=== PATIENT | female | born 1950 | race Hispanic/Latino ===

== ENCOUNTER 2017-04-20 11:37 | Emergency (ER) | payer MEDICARE ==
[2017-04-20 11:55] VITALS: BP 113/46
[2017-04-20 12:37] LABS: Basophils % (Auto) 0.9 % (0.0-1.8); Eosinophils % (Auto) 2.9 % (0.0-4.3); Hematocrit 37.9 % (30.3-42.9); Hemoglobin 12.3 gm/dl (10.1-14.3); Mean Corpuscular HGB Conc 32 % (30-34); Mean Corpuscular Hemoglobin 32 pg (28-32); Mean Corpuscular Volume 98 fl (79-97); Platelet Count 307 K/mm3 (140-440); Red Blood Count 3.88 M/mm3 (3.65-5.03); Red Cell Distribution Width 13.3 % (13.2-15.2); White Blood Count 7.7 K/mm3 (4.5-11.0)
--- NOTE | 2017-04-20 12:55 | Emergency Department Report ---
ED Chest Pain HPI - General Chief Complaint: Chest Pain Stated Complaint: GI BLEED/CHEST PAIN Time Seen by Provider: 04/20/17 12:52 Source: EMS Mode of arrival: Ambulatory Limitations: No Limitations - History of Present Illness Initial Comments: Patient complains of midsternal nonradiating chest ache which lasted less than 10 minutes. She states "I'm under a lot of stress". She has had a recent hospitalization for evaluation of chest pain. Nuclear perfusion study was negative. 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 Today she was planning to go to a 3:30 appointment with an oncologist. 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 She does not complain of shortness of breath now. She did not have shortness of breath with the episode nor any vomiting or acute diaphoresis or sweating. MD Complaint: chest pain -: Gradual, minutes(s) Onset: during rest Pain Location: substernal Pain Radiation: none Severity: mild Quality: dull Consistency: now resolved Improves With: nothing Worsens With: nothing re: denies: nausea, vomting, diaphoresis Other Symptoms: denies: cough, fever, syncope Treatments Prior to Arrival: none Aspirin use within the Past 7 Days: (1) Yes - Related Data Home Medications Medication Instructions Recorded Confirmed Last Taken Midodrine [Proamatine] 5 mg PO QAM 04/08/17 04/08/17 04/08/17 Midodrine [Proamatine] 5 mg PO QPM 04/08/17 04/08/17 04/07/17 Potassium Chloride [Klor-Con 10] 20 mg PO QAM 04/08/17 04/08/17 04/08/17 Simvastatin [Zocor TAB] 40 mg PO QHS 04/08/17 04/08/17 04/07/17 Topiramate [Topamax] 200 mg PO QHS 04/08/17 04/08/17 04/07/17 Previous Rx's Medication Instructions Recorded Last Taken Type Aspirin [Aspirin BABY CHEW TAB] 81 mg PO QDAY #30 tab.chew 04/15/17 Unknown Rx AtorvaSTATin [Lipitor] 40 mg PO QHS #30 tablet 04/15/17 Unknown Rx Famotidine [Pepcid] 20 mg PO BID #60 tablet 04/15/17 Unknown Rx HYDROcodone/ACETAMINOPHEN 1 tab PO Q6H PRN #20 tablet 04/15/17 Unknown Rx [Hydrocodon-Acetaminophn 10-325] Midodrine [Proamatine] 5 mg PO QHS #30 tablet 04/15/17 Unknown Rx Pantoprazole [Protonix TAB] 40 mg PO QDAY #30 tablet 04/15/17 Unknown Rx Topiramate [Topamax] 100 mg PO QAM #30 tablet 04/15/17 Unknown Rx Topiramate [Topamax] 200 mg PO QHS #30 tablet 04/15/17 Unknown Rx levETIRAcetam [Keppra TAB] 750 mg PO QHS #60 tablet 04/15/17 Unknown Rx Allergies Allergy/AdvReac Type Severity Reaction Status Date / Time Penicillins Allergy Intermediate Itching Verified 04/08/17 13:33 codeine AdvReac Rash Verified 04/08/17 13:33 Sulfa (Sulfonamide AdvReac Nausea Verified 04/08/17 13:33 Antibiotics) Heart Score - HEART Score History: Slightly suspicious EKG: Normal Age: > 65 Risk factors: > 3 risk factors or hx of atherosclerotic disease Troponin: < normal limit HEART Score: 4 - Critical Actions Critical Actions: 4-6 pts:12-16.6% risk of adverse cardiac event. Should be admitted ED Review of Systems ROS: Stated complaint: GI BLEED/CHEST PAIN Other details as noted in HPI Constitutional: denies: chills, fever Eyes: denies: eye pain, eye discharge, vision change ENT: denies: ear pain, throat pain Respiratory: denies: cough, shortness of breath, wheezing Cardiovascular: chest pain. denies: palpitations Endocrine: no symptoms reported Gastrointestinal: denies: abdominal pain, nausea, diarrhea Genitourinary: denies: urgency, dysuria, discharge Musculoskeletal: denies: back pain, joint swelling, arthralgia Skin: denies: rash, lesions Neurological: denies: headache, weakness, paresthesias Psychiatric: denies: anxiety, depression Hematological/Lymphatic: denies: easy bleeding, easy bruising ED Past Medical Hx - Past Medical History Previous Medical History?: Yes Hx Hypertension: Yes (Hypotension ) Hx CVA: Yes Hx Heart Attack/AMI: Yes (states that no stent has been placed) Hx Congestive Heart Failure: Yes Hx Diabetes: No Hx Deep Vein Thrombosis: Yes Hx GERD: Yes Hx Arthritis: Yes Hx Seizures: Yes Hx Psychiatric Treatment: Yes Hx Asthma: No Hx COPD: Yes Hx HIV: No Additional medical history: Atrial fibrillation patient had a cardiac cath done in 2007 which showed clean coronary arteries except for extremely mild disease. Echocardiogram showed an ejection fraction of 50%. - Surgical History Past Surgical History?: Yes Hx Pacemaker: Yes Hx Cholecystectomy: Yes Hx Appendectomy: Yes Additional Surgical History: hyst. Patient does have a pacemaker - Social History Smoking Status: Current Every Day Smoker Substance Use Type: None - Medications Home Medications: Home Medications Medication Instructions Recorded Confirmed Last Taken Type Midodrine [Proamatine] 5 mg PO QAM 04/08/17 04/08/17 04/08/17 History Midodrine [Proamatine] 5 mg PO QPM 04/08/17 04/08/17 04/07/17 History Potassium Chloride [Klor-Con 10] 20 mg PO QAM 04/08/17 04/08/17 04/08/17 History Simvastatin [Zocor TAB] 40 mg PO QHS 04/08/17 04/08/17 04/07/17 History Topiramate [Topamax] 200 mg PO QHS 04/08/17 04/08/17 04/07/17 History Aspirin [Aspirin BABY CHEW TAB] 81 mg PO QDAY #30 tab.chew 04/15/17 Unknown Rx AtorvaSTATin [Lipitor] 40 mg PO QHS #30 tablet 04/15/17 Unknown Rx Famotidine [Pepcid] 20 mg PO BID #60 tablet 04/15/17 Unknown Rx HYDROcodone/ACETAMINOPHEN 1 tab PO Q6H PRN #20 tablet 04/15/17 Unknown Rx [Hydrocodon-Acetaminophn 10-325] Midodrine [Proamatine] 5 mg PO QHS #30 tablet 04/15/17 Unknown Rx Pantoprazole [Protonix TAB] 40 mg PO QDAY #30 tablet 04/15/17 Unknown Rx Topiramate [Topamax] 100 mg PO QAM #30 tablet 04/15/17 Unknown Rx Topiramate [Topamax] 200 mg PO QHS #30 tablet 04/15/17 Unknown Rx levETIRAcetam [Keppra TAB] 750 mg PO QHS #60 tablet 04/15/17 Unknown Rx ED Physical Exam - General Limitations: No Limitations General appearance: alert, in no apparent distress - Head Head exam: Present: atraumatic, normocephalic - Eye Eye exam: Present: normal appearance. Absent: scleral icterus - ENT ENT exam: Present: mucous membranes moist - Neck Neck exam: Present: normal inspection - Respiratory Respiratory exam: Present: normal lung sounds bilaterally, other (somewhat kyphotic chest). Absent: respiratory distress - Cardiovascular Cardiovascular Exam: Present: regular rate, normal rhythm. Absent: systolic murmur, diastolic murmur, rubs, gallop - GI/Abdominal GI/Abdominal exam: Present: soft, normal bowel sounds. Absent: distended, tenderness, guarding, rebound - Extremities Exam Extremities exam: Present: normal inspection - Back Exam Back exam: Present: normal inspection - Neurological Exam Neurological exam: Present: alert, oriented X3, CN II-XII intact. Absent: motor sensory deficit - Psychiatric Psychiatric exam: Present: normal affect, normal mood - Skin Skin exam: Present: warm, dry, intact, normal color. Absent: rash ED Course Vital Signs 04/20/17 04/20/17 04/20/17 11:51 11:57 12:03 Temperature 98.5 F Pulse Rate 69 70 Respiratory 16 16 Rate Blood Pressure 113/46 O2 Sat by Pulse 99 99 Oximetry - Reevaluation(s) Reevaluation #1: I didn't see any benefit for hospitalization at this point. Patient has no acute rectal bleeding. She simply mentioned that sometimes she has hemorrhoidal bleeding. That is not why she came today. She has an appointment with her oncologist at the series first appointment) at 3:30. I would not do later this by detaining her any further in the hospital. She will be released. 04/20/17 13:19 ED Medical Decision Making - Lab Data Result diagrams: 04/20/17 12:17 04/20/17 12:11 Laboratory Results - last 24 hr 04/20/17 12:17 WBC 7.7 RBC 3.88 Hgb 12.3 Hct 37.9 MCV 98 H MCH 32 MCHC 32 RDW 13.3 Plt Count 307 Lymph % (Auto) 32.1 [place] % (Auto) 8.1 H Eos % (Auto) 2.9 Baso % (Auto) 0.9 Lymph # 2.5 [place] # 0.6 Eos # 0.2 Baso # 0.1 Seg Neutrophils % 56.0 Seg Neutrophils # 4.3 - EKG Data -: EKG Interpreted by Me - EKG Data Interpretation: other (possible underlying atrial fibrillation with ventricular pacing) Critical care attestation.: If time is entered above; I have spent that time in minutes in the direct care of this critically ill patient, excluding procedure time. ED Disposition Clinical Impression: Atypical chest pain Squamous cell carcinoma lung Qualifiers: Laterality: right Qualified Code(s): C34.91 - Malignant neoplasm of unspecified part of right bronchus or lung Disposition: DC-01 TO HOME OR SELFCARE Is pt being admited?: No Does the pt Need Aspirin: No Condition: Stable Instructions: Chest Pain (ED), Lung Cancer (ED) Additional Instructions: Return any acute change or problem. See her oncologist for further instruction as for appointment today. Referrals: PRIMARY CARE, [Primary Care Provider] - 3-5 Days you, oncologist at 3:30 [Other] - 3-5 Days Time of Disposition: 13:21
[2017-04-20 12:57] LABS: Anion Gap 16 mmol/L; BUN/Creatinine Ratio 20; Blood Urea Nitrogen 14 mg/dL (7-17); Calcium 8.9 mg/dL (8.4-10.2); Carbon Dioxide 19 mmol/L (22-30); Chloride 106.5 mmol/L (98-107); Glucose 83 mg/dL (65-100); Potassium 3.8 mmol/L (3.6-5.0); Sodium 138 mmol/L (137-145)
== END 2017-04-20 13:39 | disposition home or self-care (01) ==
LOC: ED 11:37
DX: R07.89 Other chest pain (principal); C34.91 Malignant neoplasm of unspecified part of right bronchus or lung; I10 Essential (primary) hypertension; I25.2 Old myocardial infarction; K21.9 Gastro-esophageal reflux disease without esophagitis; J44.9 Chronic obstructive pulmonary disease, unspecified; R56.9 Unspecified convulsions; M19.90 Unspecified osteoarthritis, unspecified site; I82.409 Acute embolism and thrombosis of unspecified deep veins of unspecified lower extremity; Z88.0 Allergy status to penicillin; Z88.6 Allergy status to analgesic agent; Z88.2 Allergy status to sulfonamides; Z98.890 Other specified postprocedural states; Z90.49 Acquired absence of other specified parts of digestive tract; Z79.82 Long term (current) use of aspirin; F17.200 Nicotine dependence, unspecified, uncomplicated
CPT/HCPCS: 36415; 80048; 84484; 85025; 93005; 93010

== ENCOUNTER 2018-07-15 10:20 | Emergency (ER) | payer MEDICARE ==
--- NOTE | 2018-07-15 12:59 | Emergency Department Report ---
ED N/V/D HPI - General Chief complaint: Nausea/Vomiting/Diarrhea Stated complaint: GENERAL SICKNESS Time Seen by Provider: 07/15/18 12:58 Source: patient Mode of arrival: Wheelchair Limitations: No Limitations - History of Present Illness Initial comments: This is a 58-year-old female here report that she has nausea and vomiting in and diarrhea for 3 days. She reports that she has a cough. She said cough is nonproductive with drainage the back of her throat . Cough is worse at night. Denies any urinary burning per record frequency and urgency. Last diarrhea was yesterday. Last vomited last night but she is still nauseous. Denies any fever or chills . Minimal abdominal cramping into pelvic area. Denies any back pain. Pain is 2/10 and crampy. No alleviating or exacerbating factors. No blood in stool or vomit. MD complaint: nausea, vomiting, diarrhea, abdominal pain Onset/Timin -: hour(s) Description of Vomiting: watery Description of Diarrhea: mucous Associated Abdominal Pain: Yes Location: LLQ (pelvic area) Radiation: none Severity: mild Pain Scale: 2 Quality: cramping Consistency: intermittent Improves with: none Worsens with: none Associated Symptoms: nausea/vomiting. denies: myalgias, chest pain, cough, diaphoresis, fever/chills, headaches, loss of appetite, malaise, rash, dysuria, shortness of breath, syncope, weakness - Related Data Home Medications Medication Instructions Recorded Confirmed Last Taken Midodrine [Proamatine] 5 mg PO QAM 04/08/17 04/08/17 04/08/17 Midodrine [Proamatine] 5 mg PO QPM 04/08/17 04/08/17 04/07/17 Potassium Chloride [Klor-Con 10] 20 mg PO QAM 04/08/17 04/08/17 04/08/17 Simvastatin [Zocor TAB] 40 mg PO QHS 04/08/17 04/08/17 04/07/17 Topiramate [Topamax] 200 mg PO QHS 04/08/17 04/08/17 04/07/17 Previous Rx's Medication Instructions Recorded Last Taken Type Aspirin [Aspirin BABY CHEW TAB] 81 mg PO QDAY #30 tab.chew 04/15/17 Unknown Rx AtorvaSTATin [Lipitor] 40 mg PO QHS #30 tablet 04/15/17 Unknown Rx Famotidine [Pepcid] 20 mg PO BID #60 tablet 04/15/17 Unknown Rx HYDROcodone/ACETAMINOPHEN 1 tab PO Q6H PRN #20 tablet 04/15/17 Unknown Rx [Hydrocodone-Acetamin 10-325 mg] Midodrine [Proamatine] 5 mg PO QHS #30 tablet 04/15/17 Unknown Rx Pantoprazole [Protonix TAB] 40 mg PO QDAY #30 tablet 04/15/17 Unknown Rx Topiramate [Topamax] 100 mg PO QAM #30 tablet 04/15/17 Unknown Rx Topiramate [Topamax] 200 mg PO QHS #30 tablet 04/15/17 Unknown Rx levETIRAcetam [Keppra TAB] 750 mg PO QHS #60 tablet 04/15/17 Unknown Rx ALBUTEROL Inhaler (OR & NICU) 2 puff IH Q6H PRN #1 inhalation 07/15/18 Unknown Rx [ProAir HFA Inhaler] Ondansetron [Zofran ODT TAB] 8 mg PO Q8HR PRN #12 tab.rapdis 07/15/18 Unknown Rx levoFLOXacin [Levaquin] 750 mg PO QDAY 9 Days #9 tablet 07/15/18 Unknown Rx Allergies Allergy/AdvReac Type Severity Reaction Status Date / Time Penicillins Allergy Intermediate Itching Verified 07/15/18 10:32 codeine AdvReac Rash Verified 07/15/18 10:32 Sulfa (Sulfonamide AdvReac Nausea Verified 07/15/18 10:32 Antibiotics) ED Review of Systems ROS: Stated complaint: GENERAL SICKNESS Other details as noted in HPI Constitutional: denies: chills, fever Respiratory: cough. denies: shortness of breath, SOB with exertion, SOB at rest, stridor, wheezing Cardiovascular: denies: chest pain, palpitations, dyspnea on exertion, edema, syncope Gastrointestinal: abdominal pain, nausea, vomiting, diarrhea. denies: constipation, hematemesis, melena, hematochezia Genitourinary: urgency, frequency. denies: dysuria, hematuria, discharge Musculoskeletal: denies: back pain, joint swelling, arthralgia, myalgia Skin: denies: rash Neurological: denies: headache, numbness, paresthesias, confusion, abnormal gait, vertigo ED Past Medical Hx - Past Medical History Previous Medical History?: Yes Hx Hypertension: Yes (Hypotension ) Hx CVA: Yes Hx Heart Attack/AMI: Yes (states that no stent has been placed) Hx Congestive Heart Failure: Yes Hx Diabetes: No Hx Deep Vein Thrombosis: Yes Hx GERD: Yes Hx Arthritis: Yes Hx Seizures: Yes Hx Psychiatric Treatment: Yes Hx Asthma: No Hx COPD: Yes Hx HIV: No Additional medical history: Atrial fibrillation patient had a cardiac cath done in 2007 which showed clean coronary arteries except for extremely mild disease. Echocardiogram showed an ejection fraction of 50%. - Surgical History Past Surgical History?: Yes Hx Pacemaker: Yes Hx Cholecystectomy: Yes Hx Appendectomy: Yes Additional Surgical History: hyst - Family History Family history: hypertension - Social History Smoking Status: Former Smoker Substance Use Type: None - Medications Home Medications: Home Medications Medication Instructions Recorded Confirmed Last Taken Type Midodrine [Proamatine] 5 mg PO QAM 04/08/17 04/08/17 04/08/17 History Midodrine [Proamatine] 5 mg PO QPM 04/08/17 04/08/17 04/07/17 History Potassium Chloride [Klor-Con 10] 20 mg PO QAM 04/08/17 04/08/17 04/08/17 History Simvastatin [Zocor TAB] 40 mg PO QHS 04/08/17 04/08/17 04/07/17 History Topiramate [Topamax] 200 mg PO QHS 04/08/17 04/08/17 04/07/17 History Aspirin [Aspirin BABY CHEW TAB] 81 mg PO QDAY #30 tab.chew 04/15/17 Unknown Rx AtorvaSTATin [Lipitor] 40 mg PO QHS #30 tablet 04/15/17 Unknown Rx Famotidine [Pepcid] 20 mg PO BID #60 tablet 04/15/17 Unknown Rx HYDROcodone/ACETAMINOPHEN 1 tab PO Q6H PRN #20 tablet 04/15/17 Unknown Rx [Hydrocodone-Acetamin 10-325 mg] Midodrine [Proamatine] 5 mg PO QHS #30 tablet 04/15/17 Unknown Rx Pantoprazole [Protonix TAB] 40 mg PO QDAY #30 tablet 04/15/17 Unknown Rx Topiramate [Topamax] 100 mg PO QAM #30 tablet 04/15/17 Unknown Rx Topiramate [Topamax] 200 mg PO QHS #30 tablet 04/15/17 Unknown Rx levETIRAcetam [Keppra TAB] 750 mg PO QHS #60 tablet 04/15/17 Unknown Rx ALBUTEROL Inhaler (OR & NICU) 2 puff IH Q6H PRN #1 inhalation 07/15/18 Unknown Rx [ProAir HFA Inhaler] Ondansetron [Zofran ODT TAB] 8 mg PO Q8HR PRN #12 tab.rapdis 07/15/18 Unknown Rx levoFLOXacin [Levaquin] 750 mg PO QDAY 9 Days #9 tablet 07/15/18 Unknown Rx ED Physical Exam - General Limitations: No Limitations General appearance: alert, in no apparent distress - Head Head exam: Present: atraumatic, normocephalic, normal inspection - Eye Eye exam: Present: normal appearance, PERRL, EOMI Pupils: Present: normal accommodation - ENT ENT exam: Present: normal exam, normal orophraynx, mucous membranes moist - Neck Neck exam: Present: normal inspection, full ROM. Absent: tenderness, lymphadenopathy - Respiratory Respiratory exam: Present: normal lung sounds bilaterally. Absent: respiratory distress, chest wall tenderness - Cardiovascular Cardiovascular Exam: Present: regular rate, normal rhythm, normal heart sounds - GI/Abdominal GI/Abdominal exam: Present: soft, normal bowel sounds. Absent: distended, tenderness, guarding, rebound, rigid, organomegaly, mass, bruit, pulsatile mass, hernia - Extremities Exam Extremities exam: Present: normal inspection, full ROM, normal capillary refill, other (No cce. + 2 pulses in all extremities, no neurovascular compromise). Absent: tenderness, pedal edema, joint swelling, calf tenderness - Back Exam Back exam: Present: normal inspection, full ROM, other ( ambulates without any difficulties). Absent: tenderness, CVA tenderness (R), CVA tenderness (L), muscle spasm, paraspinal tenderness, vertebral tenderness, rash noted - Neurological Exam Neurological exam: Present: alert, oriented X3, normal gait, reflexes normal - Psychiatric Psychiatric exam: Present: normal affect, normal mood - Skin Skin exam: Present: warm, dry, intact, normal color. Absent: rash ED Course Vital Signs 07/15/18 07/15/18 10:32 16:00 Temperature 97.9 F Pulse Rate 77 68 Respiratory 18 20 Rate Blood Pressure 137/75 Blood Pressure 131/71 [Right] O2 Sat by Pulse 95 94 Oximetry - Reevaluation(s) Reevaluation #1: 07/15/18 15:53 This is a 68-year-old female here report that she is of a nausea vomiting and diarrhea and abdominal pain for days but it comes and goes. Slit nausea today and also having some urinary frequency or urgency. She did not take any medication and came to the emergency room reporting that she felt dehydrated. There is no sign of dehydration. Her analysis showed small amount of, moderate leukocyte Estrace and positive white count. Urine culture sent. BMP is stable. Patient received normal saline 500 mL an emergency room and she is able to tolerate oral liquids. She also received Zofran 4 mg IV and lidocaine 15 mL with Maalox 30 mL in emergency room or relief of pain. She has no nausea and no episode of Diarrhea or vomiting. Patient stable and discharged from ED in stable condition. Vital signs stable she is afebrile and nurse access port for IV fl uid and port was the excess prior to discharge. Ciprofloxacin and Zofran. Reevaluation #2: 07/15/18 16:24 Patient remained stable throughout ED course. She is in no acute distress and discharged home in stable condition. ED Medical Decision Making - Lab Data Result diagrams: 07/15/18 13:48 Lab Results 07/15/18 07/15/18 Range/Units 13:48 13:48 Sodium 139 (137-145) mmol/L Potassium 4.1 (3.6-5.0) mmol/L Chloride 104.5 (98-107) mmol/L Carbon Dioxide 22 (22-30) mmol/L Anion Gap 17 mmol/L BUN 7 (7-17) mg/dL Creatinine 0.9 (0.7-1.2) mg/dL Estimated GFR > 60 ml/min BUN/Creatinine Ratio 8 % Glucose 94 (65-100) mg/dL Calcium 9.0 (8.4-10.2) mg/dL Urine Color Yellow (Yellow) Urine Turbidity Clear (Clear) Urine pH 7.0 (5.0-7.0) Ur Specific [place] 1.008 (1.003-1.030) Urine Protein <15 mg/dl (Negative) mg/dL Urine Glucose (UA) Neg (Negative) mg/dL Urine Ketones Neg (Negative) mg/dL Urine Blood Sm (Negative) Urine Nitrite Neg (Negative) Urine Bilirubin Neg (Negative) Urine Urobilinogen < 2.0 (<2.0) mg/dL Ur Leukocyte Esterase Mod (Negative) Urine WBC (Auto) 13.0 H (0.0-6.0) /HPF Urine RBC (Auto) 4.0 (0.0-6.0) /HPF U Epithel Cells (Auto) < 1.0 (0-13.0) /HPF Urine culture sent - Radiology Data Radiology results: report reviewed Patient had supine and upright view of the abdomen which shows unremarkable abdominal finding. She had abnormal chest findings on prior CT in April 2017 suggest review of prior CT reports. Patient said that she had pneumonia and he treated her at [place]. Patient has CT scan of the chest on 04/09/2018 and was treated for pneumonia. She had sepsis at that time with hemoptysis, hypertension. Patient is stable at present and vital signs are stable Findings [address] [address] XRay Report Signed Patient: MARIANELA WAGNER MR#: [id number] : 1950 Acct:[id number] Age/Sex: 68 / F ADM Date: 07/15/18 Loc: ED Attending Dr: Ordering Physician: ROSY WATERS Date of Service: 07/15/18 Procedure(s): XR abdomen 2V Accession Number(s): [id number] cc: ROSY WATERS Fluoro Time In Minutes: Supine and upright views of the abdomen: There is an unremarkable distribution of bowel gas. There is no free air and no abdominal mass. The markings in both lung bases however are quite coarse and there appears to be peribronchial thickening and possible infiltrate at the right lung base. Impressions: Unremarkable abdominal findings. Abnormal chest findings. Prior abnormal CT in April 2017. Suggest review of prior CT report and question patient regarding followup at that time. Transcribed By: MARIA DE JESUS Dictated By: PARVIZ BAH MD Electronically Authenticated By: PARVIZ BAH MD Signed Date/Time: 07/15/18 132 DD/ 1322 TD/TT: 07/15/18 [address] [place] [address] Cat Scan Report Signed Patient: MARIANELA WAGNER MR#: [id number] : 1950 Acct:[id number] Age/Sex: 67 / F ADM Date: 04/08/17 Loc: 4A A458-[address]: VAL ROLLINS MD Ordering Physician: MADHURI PAVON MD Date of Service: 04/09/17 Procedure(s): CT chest w con Accession Number(s): [id number] cc: MADHURI PAVON MD CT CHEST WITH CONTRAST: HISTORY: Hemoptysis. TECHNIQUE: Helical CT following IV contrast. Sagittal and coronal reformatted images. FINDINGS: No recent comparison. There is a rounded area of consolidation measuring 4.1 x 3.4 cm just posterior to the right hilum. Patchy infiltration is also identified in the posterior right lower lobe. This has the appearance of a focal pneumonia. I cannot entirely exclude an underlying lung mass. Followup after therapy is recommended. The remainder of the lungs are clear. There are mild chronic interstitial changes. No advanced parenchymal lung disease is appreciated. No pleural effusion or pneumothorax. There is borderline to mild cardiomegaly. No pericardial effusion. A pacemaker device is in position. The mediastinal vessels are patent. The tracheobronchial tree and esophagus are unremarkable. No bulky thoracic adenopathy. The thoracic cage is intact. Mild thoracic spondylosis is noted. Limited images of the upper abdomen demonstrate cholecystectomy changes. A 1.5 cm low-density lesion in the right adrenal gland is identified which probably represents an adrenal adenoma. IMPRESSION: Right lower lobe opacity as described. I favor pneumonia over mass. Followup is recommended. Borderline to mild cardiomegaly. Right adrenal hypodense lesion which probably represents an adrenal adenoma. Transcribed By: TTR Dictated By: LELA TORIBIO JR, MD Electronically Authenticated By: LELA TORIBIO JR, MD Signed Date/Time: 04/09/17850 DD/ 7 TD/TT: 04/09/17850 - Medical Decision Making This is a 68-year-old female here report that she is having nausea vomiting and diarrhea which she has not had any vomiting or diarrhea today but she still not nauseated. She was here on 04/09/2018 and was treated for pneumonia amongst other things that she was a admitted for sepsis pneumonia. Patient vital signs are stable she is afebrile. She says she feels good and she feels better. Abdominal x-ray 2 view shows normal abdomen but she has some peribronchial thickening and possible infiltrate at the right lung base. Patient is not short of breath. She has COPD and her O2 sat is 95%. Other vital signs are stable with no signs of sepsis. I discussed diagnosis, x-ray results and lab results along with urinalysis with patient. She will first got home she said last time she was admitted for pneumonia was when she was at [place] but patient was also admitted on 04/09/2018. Patient doctor is Dr. Jose Bardales and she is in [facility] and patient said that she will be able to get an appointment with her on Wednesday. I discussed with her that she needs to return to the emergency room if she develops any dizziness, nausea, vomiting and diarrhea return, abdominal pain, shortness of breath or chest pain. I also discussed that she has weakness to return to the emergency room JOHNNY and she agrees. Patient given first dose of Levaquin to cover possible right lower lobe infiltrate and urinary tract infection in emergency room and will be given 9 more doses for a total of 10 days. She was also given nebulizer treatment to include DuoNeb 1 dose in emergency room. Patient lung sounds was clear prior to treatments with diminished air entry due to chronic COPD but she does not have any adventitious sounds and no use of accessory muscles. She has no episode of nausea, vomiting or diarrhea in the emergency room and she requested pain medication 1 and emergency room and is given Maalox and lidocaine which resolved her pain. Discharged lower prescription for albuterol HFA and Levaquin. - Differential Diagnosis bowel obstruction, gastroenteritis, UTI Critical care attestation.: If time is entered above; I have spent that time in minutes in the direct care of this critically ill patient, excluding procedure time. ED Disposition Clinical Impression: Nausea vomiting and diarrhea, Acute cystitis with hematuria Right lower lobe pneumonia Qualifiers: Pneumonia type: due to unspecified organism Qualified Code(s): J18.1 - Lobar pneumonia, unspecified organism Abdominal pain Qualifiers: Abdominal location: left lower quadrant Qualified Code(s): R10.32 - Left lower quadrant pain Disposition: DC-01 TO HOME OR SELFCARE Is pt being admited?: No Does the pt Need Aspirin: No Condition: Stable Instructions: Urinary Tract Infection in Women (ED), Acute Nausea and Vomiting (ED), Acute Diarrhea (ED), Community-acquired Pneumonia (ED), Abdominal Pain (ED), Nutrition Tips for Relief of Diarrhea (ED) Additional Instructions: These follow-up with the primary care physician Dr. Jose Epperson in 3 days. If you condition worsens, return to the emergency room JOHNNY. This will include recurrence of nausea and vomiting, diarrhea, abdominal pain, shortness of breath, chest pain, fever and/or chills, weakness, dizziness, increased heart rate and decreased blood pressure. Take medication as prescribed You took a first dose of Levaquin to cover pneumonia and urinary tract infection as a hospital so you will need to take an extra dose tomorrow. Use albuterol inhaler every 6 hours 2 days and then as needed Guaifenesin DM every 6 hours for cough. Prescriptions: ALBUTEROL Inhaler (OR & NICU) [ProAir HFA Inhaler] 2 puff IH Q6H PRN #1 inhalat ion PRN Reason: Shortness Of Breath levoFLOXacin [Levaquin] 750 mg PO QDAY 9 Days #9 tablet Ondansetron [Zofran ODT TAB] 8 mg PO Q8HR PRN #12 tab.rapdis PRN Reason: Nausea And Vomiting Referrals: PRIMARY CARE, [Primary Care Provider] - 07/18/18 JOSE EDMOND MD [Staff Physician] - 07/18/18 Forms: Work/School Release Form(ED)
[2018-07-15] MEDS ORDERED: NACL 0.9% 500 ML 500 ML IV ONE (13:01)
[2018-07-15] MEDS ORDERED: ZOFRAN IV ONE (13:01)
[2018-07-15] MEDS ORDERED: ALUM-MAG HYDROX-SIMETH 200-200-20MG/5ML PO ONE (13:03)
[2018-07-15] MEDS ORDERED: LIDOCAINE VISCOUS 2% PO ONE (13:03)
--- NOTE | 2018-07-15 13:49 | XRay Report ---
Supine and upright views of the abdomen: There is an unremarkable distribution of bowel gas. There is no free air and no abdominal mass. The markings in both lung bases however are quite coarse and there appears to be peribronchial thickening and possible infiltrate at the right lung base. Impressions: Unremarkable abdominal findings. Abnormal chest findings. Prior abnormal CT in April 2017. Suggest review of prior CT report and question patient regarding followup at that time.
[2018-07-15 14:02] LABS: Bilirubin,Urine NEG (Negative); Blood,Urine SM (Negative); Color,Urine Yellow (Yellow); Protein,Urine <15 mg/dL mg/dL (Negative); Urobilinogen,Urine < 2.0 mg/dL (<2.0)
[2018-07-15 14:28] LABS: BUN/Creatinine Ratio 8; Blood Urea Nitrogen 7 mg/dL (7-17); Hemolysis Index 4
[2018-07-15] MEDS ORDERED: FLUSH HEPARIN IV ONE (16:12)
[2018-07-15] MEDS ORDERED: LEVAQUIN PO ONE (16:19)
[2018-07-15] MEDS ORDERED: DUONEB *Not for PRN Use IH ONE (16:19)
[2018-07-15 16:44] VITALS: BP 131/71
== END 2018-07-15 16:55 | disposition home or self-care (01) ==
LOC: ED 10:20
DX: J18.1 Lobar pneumonia, unspecified organism (principal); N30.01 Acute cystitis with hematuria; R10.32 Left lower quadrant pain; I11.0 Hypertensive heart disease with heart failure; I50.9 Heart failure, unspecified; I25.2 Old myocardial infarction; K21.9 Gastro-esophageal reflux disease without esophagitis; M19.90 Unspecified osteoarthritis, unspecified site; J44.9 Chronic obstructive pulmonary disease, unspecified; Z86.73 Personal history of transient ischemic attack (TIA), and cerebral infarction without residual deficits; Z90.49 Acquired absence of other specified parts of digestive tract; Z95.0 Presence of cardiac pacemaker; Z87.891 Personal history of nicotine dependence; Z86.718 Personal history of other venous thrombosis and embolism; Z79.82 Long term (current) use of aspirin; Z88.6 Allergy status to analgesic agent; Z88.0 Allergy status to penicillin; Z88.2 Allergy status to sulfonamides
CPT/HCPCS: 36415; 74019; 80048; 81001; 87086; 94640; 96374; 96375; 99284; J1642; J2405; J7040

== ENCOUNTER 2019-02-24 06:46 | Inpatient (IN) | payer MEDICARE ==
[2019-02-24] MEDS ORDERED: DUONEB *Not for PRN Use IH ONE (07:22)
--- NOTE | 2019-02-24 07:32 | Emergency Department Report ---
ED Shortness of Breath HPI - General Chief Complaint: Dyspnea/Respdistress Stated Complaint: RUIZ Time Seen by Provider: 02/24/19 07:16 Source: patient Mode of arrival: Stretcher Limitations: No Limitations - History of Present Illness Initial Comments: This is a 69 year old female whose chart states that she has had a recent pneumonia and a history of lung cancer. The patient herself is somnolent. She will not arouse to voice. However she will wake up to sternal rub and follow commands. She is not providing any historical information at this time. Patient was transferred to this facility via EMS. She stated she had a history of lung cancer and recent treatment for pneumonia per paramedics. Apparently she was placed on azithromycin during a recent admission to [facility]. She had a pulse oximetry of 88% on room air on their arrival. Previous discharge summary in 2017 indicated: Patient is a 67-year-old woman with a history of tobacco dependency, atrial fibrillation on Eliquis, CVA described as multiple mini strokes, permanent pacemaker, PTSD, hypertension, bipolar disorder and dyslipidemia who presents with cough up blood, low blood pressure and chest pains. CT head read as left lacunar infarct likely chronic, doubt acute finding. Chest x-ray read as no acute findings. CT chest with contrast read as right lower lobe opacity, no recent comparison, there is rounded area consolidation measuring 4.13.1 cm just posterior to right hilum, patchy infiltration is also identified in the posterior right lower lobe, this has appearance of focal pneumonia, cannot entirely exclude underlying lung mass. Borderline to mild cardiomegaly, right adrenal hypodense lesion which probably represent an adrenal adenoma. right lower lobe mass with Endo Bronchial lesion -Oncology consult requested Plan Discussed with music worker. Atypical chest pain. likely due to pneumonia. No evidence of cardiac disease. cardiology input noted. Patient's chest pain is atypical. She has had extensive cardiac ischemic workup in the past several years including 2 negative cardiac catheterizations in 2008 and again in 2012. An echocardiogram within the past month demonstrated well preserved left ventricle systolic function, ejection fraction 50-55%. No further ischemic workup is indicated at the current time, patient recommended for follow-up in our office in 3-5 days after discharge. -Sepsis pneumonia, present on admission, as evident by rr 22, hr 92 with pna: blood cultures remain negative. treated with antibiotics, IV fluids -Hypotension with a diagnosis of hypertension: Hold antihypertensive and treat with IV fluids -Hemoptysis on Eliquis: Held anticoagulation for possible bronchoscopy, -Atrial fibrillation with hypercoagulable state: s/p ventricular pacemaker on demand treat with rate control. Hold Eliquis till Biopsy done. Discussed with cardiology -Tobacco dependency: Counselled on cessation -DVT prophylaxis: SCDs only due to hemoptysis -PLAN Discussed with the patient in detail Discharge post oncolgy consult MD Complaint: shortness of breath -: unknown - Related Data Home Medications Medication Instructions Recorded Confirmed Last Taken Midodrine [Proamatine] 5 mg PO QAM 04/08/17 04/08/17 04/08/17 Midodrine [Proamatine] 5 mg PO QPM 04/08/17 04/08/17 04/07/17 Potassium Chloride [Klor-Con 10] 20 mg PO QAM 04/08/17 04/08/17 04/08/17 Simvastatin [Zocor TAB] 40 mg PO QHS 04/08/17 04/08/17 04/07/17 Topiramate [Topamax] 200 mg PO QHS 04/08/17 04/08/17 04/07/17 Previous Rx's Medication Instructions Recorded Last Taken Type Aspirin [Aspirin BABY CHEW TAB] 81 mg PO QDAY #30 tab.chew 04/15/17 Unknown Rx AtorvaSTATin [Lipitor] 40 mg PO QHS #30 tablet 04/15/17 Unknown Rx Famotidine [Pepcid] 20 mg PO BID #60 tablet 04/15/17 Unknown Rx HYDROcodone/ACETAMINOPHEN 1 tab PO Q6H PRN #20 tablet 04/15/17 Unknown Rx [Hydrocodone-Acetamin 10-325 mg] Midodrine [Proamatine] 5 mg PO QHS #30 tablet 04/15/17 Unknown Rx Pantoprazole [Protonix TAB] 40 mg PO QDAY #30 tablet 04/15/17 Unknown Rx Topiramate [Topamax] 100 mg PO QAM #30 tablet 04/15/17 Unknown Rx Topiramate [Topamax] 200 mg PO QHS #30 tablet 04/15/17 Unknown Rx levETIRAcetam [Keppra TAB] 750 mg PO QHS #60 tablet 04/15/17 Unknown Rx ALBUTEROL Inhaler (OR & NICU) 2 puff IH Q6H PRN #1 inhalation 07/15/18 Unknown Rx [ProAir HFA Inhaler] Ondansetron [Zofran ODT TAB] 8 mg PO Q8HR PRN #12 tab.rapdis 07/15/18 Unknown Rx levoFLOXacin [Levaquin] 750 mg PO QDAY 9 Days #9 tablet 07/15/18 Unknown Rx Allergies Allergy/AdvReac Type Severity Reaction Status Date / Time Penicillins Allergy Intermediate Itching Verified 07/15/18 10:32 codeine AdvReac Rash Verified 07/15/18 10:32 Sulfa (Sulfonamide AdvReac Nausea Verified 07/15/18 10:32 Antibiotics) ED Review of Systems ROS: Stated complaint: RUIZ Other details as noted in HPI Comment: All other systems reviewed and negative ED Past Medical Hx - Past Medical History Hx Hypertension: Yes (Hypotension ) Hx CVA: Yes Hx Heart Attack/AMI: Yes (states that no stent has been placed) Hx Congestive Heart Failure: Yes Hx Diabetes: No Hx Deep Vein Thrombosis: Yes Hx GERD: Yes Hx Arthritis: Yes Hx Seizures: Yes Hx Psychiatric Treatment: Yes Hx Asthma: No Hx COPD: Yes Hx HIV: No Additional medical history: Atrial fibrillation patient had a cardiac cath done in 2007 which showed clean coronary arteries except for extremely mild disease. Echocardiogram showed an ejection fraction of 50%. - Surgical History Hx Pacemaker: Yes Hx Cholecystectomy: Yes Hx Appendectomy: Yes Additional Surgical History: hyst - Social History Smoking Status: Never Smoker - Medications Home Medications: Home Medications Medication Instructions Recorded Confirmed Last Taken Type Midodrine [Proamatine] 5 mg PO QAM 04/08/17 04/08/17 04/08/17 History Midodrine [Proamatine] 5 mg PO QPM 04/08/17 04/08/17 04/07/17 History Potassium Chloride [Klor-Con 10] 20 mg PO QAM 04/08/17 04/08/17 04/08/17 History Simvastatin [Zocor TAB] 40 mg PO QHS 04/08/17 04/08/17 04/07/17 History Topiramate [Topamax] 200 mg PO QHS 04/08/17 04/08/17 04/07/17 History Aspirin [Aspirin BABY CHEW TAB] 81 mg PO QDAY #30 tab.chew 04/15/17 Unknown Rx AtorvaSTATin [Lipitor] 40 mg PO QHS #30 tablet 04/15/17 Unknown Rx Famotidine [Pepcid] 20 mg PO BID #60 tablet 04/15/17 Unknown Rx HYDROcodone/ACETAMINOPHEN 1 tab PO Q6H PRN #20 tablet 04/15/17 Unknown Rx [Hydrocodone-Acetamin 10-325 mg] Midodrine [Proamatine] 5 mg PO QHS #30 tablet 04/15/17 Unknown Rx Pantoprazole [Protonix TAB] 40 mg PO QDAY #30 tablet 04/15/17 Unknown Rx Topiramate [Topamax] 100 mg PO QAM #30 tablet 04/15/17 Unknown Rx Topiramate [Topamax] 200 mg PO QHS #30 tablet 04/15/17 Unknown Rx levETIRAcetam [Keppra TAB] 750 mg PO QHS #60 tablet 04/15/17 Unknown Rx ALBUTEROL Inhaler (OR & NICU) 2 puff IH Q6H PRN #1 inhalation 07/15/18 Unknown Rx [ProAir HFA Inhaler] Ondansetron [Zofran ODT TAB] 8 mg PO Q8HR PRN #12 tab.rapdis 07/15/18 Unknown Rx levoFLOXacin [Levaquin] 750 mg PO QDAY 9 Days #9 tablet 07/15/18 Unknown Rx ED Physical Exam - General Limitations: Altered Mental Status General appearance: obtunded - Head Head exam: Present: atraumatic, normocephalic - Eye Eye exam: Present: normal appearance. Absent: scleral icterus - ENT ENT exam: Present: mucous membranes moist - Neck Neck exam: Present: normal inspection. Absent: tenderness, meningismus - Respiratory Respiratory exam: Present: wheezes (expiratory). Absent: normal lung sounds bilaterally, respiratory distress - Cardiovascular Cardiovascular Exam: Present: regular rate, normal rhythm. Absent: systolic murmur, diastolic murmur, rubs, gallop - GI/Abdominal GI/Abdominal exam: Present: soft, normal bowel sounds - Extremities Exam Extremities exam: Present: normal inspection - Back Exam Back exam: Present: normal inspection - Neurological Exam Neurological exam: Present: alert, oriented X3 - Psychiatric Psychiatric exam: Present: normal affect, normal mood - Skin Skin exam: Present: warm, dry, intact, normal color. Absent: rash ED Course Vital Signs 02/24/19 02/24/1919 07:00 08:13 09:09 Temperature 99.0 F Pulse Rate 85 88 Respiratory 18 18 Rate Blood Pressure 113/67 Blood Pressure 105/52 [Left] O2 Sat by Pulse 96 97 98 Oximetry 02/24/19 02/24/19 10:21 11:19 Temperature Pulse Rate 91 H Respiratory 16 16 Rate Blood Pressure Blood Pressure 116/53 91/50 [Left] O2 Sat by Pulse 96 95 Oximetry - Reevaluation(s) Reevaluation #1: Patient has been uncooperative with staff. She is refused blood work and a [facility] [facility] x-ray. I spoke to the nurse and respiratory therapist about this situation. I spoke to the patient. The patient stated that she wanted to go to [facility] where her physicians are. She seems to have mental capacity to refuse care. I have explained to her that I can proceed with a transfer as soon as I determine that she is stable for transfer. I have explained that diagnostic tests will enable me to do so. At this point she told me that she will cooperate. 02/24/19 07:48 Reevaluation #2: Spoke with the patient's daughter who requested that she be admitted here. I asked the daughter to confirm with the patient and finally they both agreed to admission here. Patient herself was found to have a significantly high ammonia level. I will discuss this with the admitting hospitalist. I will add CT imaging. Hopefully the patient will be cooperative with further care and evaluation in this hospital. 02/24/19 11:30 02/24/19 11:33 I have additionally ordered a lactic acid level and blood cultures now that the patient has an accessed port. Again hopefully she will cooperate. ED Medical Decision Making - Lab Data Result diagrams: 02/24/19 Unknown 02/24/19 Unknown Laboratory Results - last 24 hr 02/24/19 02/24/19 02/24/19 Unknown Unknown Unknown WBC 12.3 H RBC 4.35 Hgb 13.8 Hct 41.3 MCV 95 MCH 32 MCHC 33 RDW 15.6 H Plt Count 359 Lymph % (Auto) 10.0 L [place] % (Auto) 5.2 Eos % (Auto) 1.1 Baso % (Auto) 0.7 Lymph # 1.2 [place] # 0.6 Eos # 0.1 Baso # 0.1 Seg Neutrophils % 83.0 H Seg Neutrophils # 10.2 H PT 14.1 INR 1.12 APTT 27.1 ABG pH ABG pCO2 ABG pO2 ABG HCO3 ABG O2 Saturation ABG O2 Content ABG Base Excess ABG Hemoglobin ABG Carboxyhemoglobin ABG Methemoglobin Oxyhemoglobin FiO2 Lactic Acid 0.90 Ammonia 02/24/19 02/24/19 Unknown Unknown WBC RBC Hgb Hct MCV MCH MCHC RDW Plt Count Lymph % (Auto) [place] % (Auto) Eos % (Auto) Baso % (Auto) Lymph # [place] # Eos # Baso # Seg Neutrophils % Seg Neutrophils # PT INR APTT ABG pH 7.360 ABG pCO2 46.1 ABG pO2 83.8 ABG HCO3 25.5 ABG O2 Saturation 96.4 ABG O2 Content 18.5 ABG Base Excess -0.3 ABG Hemoglobin 14.2 ABG Carboxyhemoglobin 3.3 ABG Methemoglobin 0.5 Oxyhemoglobin 92.8 L FiO2 21 Lactic Acid Ammonia 116.0 H - EKG Data -: EKG Interpreted by Ma Rate: normal - EKG Data Interpretation: other (atrial fibrillation with nonspecific changes. Old anteri or and inferior zone is likely) - Radiology Data Radiology results: report reviewed (mass right lower lobe) Critical care attestation.: If time is entered above; I have spent that time in minutes in the direct care of this critically ill patient, excluding procedure time. ED Disposition Clinical Impression: Respiratory distress, Hypoxia, Carcinoma of right lung, Hyperammonemia, COPD e xacerbation Disposition: 09 OP ADMIT IP TO THIS HOSP Is pt being admited?: Yes Does the pt Need Aspirin: Yes Condition: Stable Instructions: Chronic Obstructive Pulmonary Disease (ED) Referrals: PRIMARY CARE, [Primary Care Provider] - 3-5 Days Time of Disposition: 11:35
--- NOTE | 2019-02-24 08:14 | XRay Report ---
CHEST 1 VIEW 02/24/2019 7:39 AM INDICATION / CLINICAL INFORMATION: RUIZ. COMPARISON: Chest x-ray on 04/08/2017. FINDINGS: SUPPORT DEVICES: Right IJ port in place with the tip projecting over the superior cavoatrial junction . Cardiac pacemaker in place with leads projecting good position. HEART / MEDIASTINUM: No significant abnormality. LUNGS / PLEURA: Right lower lobe parenchymal opacity. No pneumothorax. ADDITIONAL FINDINGS: No significant additional findings. IMPRESSION: 1. Right lower lobe parenchymal opacity which is concerning for possible focal mass lesion. Recommend correlation with any more recent imaging that may be available at another institution given the pres ence of a port. Signer Name: Audi Light MD Signed: 02/24/2019 8:09 AM Workstation Name: [id number]
[2019-02-24 08:32] LABS: ABG Base Excess -0.3 mmol/L (-2.0-3.0); ABG HCO3 25.5 mmol/L (20.0-26.0); ABG Methemoglobin 0.5 % (0.0-1.5); ABG Oxygen Saturation 96.4 % (95.0-99.0); ABG PCO2 46.1 mm Hg; ABG PH 7.36 pH Units (7.350-7.450); ABG PO2 83.8 mm Hg (80.0-90.0)
[2019-02-24] MEDS ORDERED: SOLU-Medrol IV ONE (09:30)
[2019-02-24 09:42] LABS: INR 1.12 (0.87-1.13)
[2019-02-24 09:52] LABS: Partial Thromboplastin Time 27.1 Sec. (24.2-36.6)
[2019-02-24 10:00] LABS: Basophils # (Auto) 0.1 K/mm3 (0.0-0.1); Basophils % (Auto) 0.7 % (0.0-1.8); Eosinophils # (Auto) 0.1 K/mm3 (0.0-0.4); Eosinophils % (Auto) 1.1 % (0.0-4.3); Hematocrit 41.3 % (30.3-42.9); Hemoglobin 13.8 gm/dl (10.1-14.3); Lymphocytes # (Auto) 1.2 K/mm3 (1.2-5.4); Mean Corpuscular HGB Conc 33 % (30-34); Mean Corpuscular Volume 95 fl (79-97); Monocytes # (Auto) 0.6 K/mm3 (0.0-0.8); Monocytes % (Auto) 5.2 % (0.0-7.3); Platelet Count 359 K/mm3 (140-440); Red Blood Count 4.35 M/mm3 (3.65-5.03); Red Cell Distribution Width 15.6 % (13.2-15.2)
[2019-02-24 10:28] LABS: Creatine Kinase MB 1.4 ng/mL (0.0-4.0)
[2019-02-24 10:29] LABS: Alanine Aminotransferase 6 units/L (7-56); Albumin 3.4 g/dL (3.9-5); BUN/Creatinine Ratio 19; Blood Urea Nitrogen 13 mg/dL (7-17); Calcium 8.5 mg/dL (8.4-10.2); Hemolysis Index 1
[2019-02-24 10:35] LABS: Bilirubin,Direct < 0.2 mg/dL (0-0.2)
[2019-02-24] MEDS ORDERED: NACL 0.9% 250ML 250 ML IV ONE (11:26)
[2019-02-24] MEDS ORDERED: BABY ASPIRIN PO ONE (11:35)
--- NOTE | 2019-02-24 12:15 | History and Physical Report ---
History of Present Illness Chief complaint: I cant breathe History of present illness: 69 Female with Atrial Fib on Therapeutic Anticoagulation, CVA, Bioplar Disorder, HTN, PTSD, Depression, Anxiety, Psychogenic Seizures, HLD, Lung Cancer, COPD, DVT, SD presents to ED for evaluation. Pt lying in bed. Pt is able to speak in short sentences at time of my exam. Pt acknowledges shortness of breath over the past 1 week, with worsening symptoms over the past 3 days. Pt also acknowledges dypsnea on exertion, dypsnea at rest, increased productive cough with increased clear sputum production, increased nebulizer and inhaler usage without relief. EMS was notified this morning, and upon arrival the patient was found to have Pulse oximetry in the 80's and placed on supplemental oxygen and transported to [facility]. Pt seen and evaluated in ED and found to have COPD Exacerbation complicated by Acute Respiratory Failure, RLL Pneumonia, and SIRS. Pt admitted to medical floor and initiated on Pneumonia protocol. Pt denies fever, shaking chills, BRBPR, Hemoptysis, skin rash, trauma, or recent ill contacts. Prior admission on 04/08/17 reviewed. All listed medication reconciled at time of admission. Past History Past Medical History: atrial fib, cancer, COPD, DVT, GERD, hypertension, hyperlipidemia, seizures, stroke, other (Bipolar, ) Past Surgical History: appendectomy, cholecystectomy, hysterectomy, Other (ICD placement) Social history: Family history: hypertension Medications and Allergies Allergies Allergy/AdvReac Type Severity Reaction Status Date / Time Penicillins Allergy Intermediate Itching Verified 07/15/18 10:32 codeine AdvReac Rash Verified 07/15/18 10:32 Sulfa (Sulfonamide AdvReac Nausea Verified 07/15/18 10:32 Antibiotics) Home Medications Medication Instructions Recorded Confirmed Last Taken Type Topiramate [Topamax] 200 mg PO QHS 04/08/17 02/24/19 04/07/17 History Aspirin [Aspirin BABY CHEW TAB] 81 mg PO QDAY #30 tab.chew 04/15/17 02/24/19 Unknown Rx Topiramate [Topamax] 100 mg PO QAM #30 tablet 04/15/17 02/24/19 Unknown Rx Apixaban [Eliquis] 5 mg PO BID 02/24/19 02/24/19 Unknown History Azithromycin [Zithromax] 250 mg PO QDAY 02/24/19 02/24/19 Unknown History Budesonide/Formoterol Fumarate 10.2 gm IH PRN 02/24/19 02/24/19 Unknown History [Symbicort 160-4.5 Mcg Inhaler] hydroCHLOROthiazide [Hctz] 12.5 mg PO QDAY 02/24/19 02/24/19 Unknown History Review of Systems Constitutional: no weight loss, no weight gain, no fever, no chills Ears, nose, mouth and throat: no ear pain, no ear discharge, no tinnitis, no decreased hearing, no nose pain, no nasal congestion, no sinus pressure Breasts: no change in shape, no swelling, no mass Cardiovascular: no chest pain, no orthopnea, no palpitations, no rapid/irregular heart beat, no edema Respiratory: cough, cough with sputum, excessive sputum, shortness of breath, wheezing Gastrointestinal: no abdominal pain, no nausea, no vomiting, no diarrhea, no constipation, no change in bowel habits Genitourinary Female: no pelvic pain, no flank pain, no menorrhagia, no dysuria, no urinary frequency, no urgency Rectal: no pain, no incontinence, no bleeding Musculoskeletal: no neck stiffness, no neck pain, no shooting arm pain, no arm numbness/tingling, no low back pain Integumentary: no rash, no pruritis, no redness, no wounds, no jaundice Neurological: no transient paralysis, no paralysis, no weakness, no parathesias, no numbness, no seizures, no tremors Psychiatric: no anxiety, no memory loss, no change in sleep habits, no sleep disturbances, no insomnia, no change in appetite Endocrine: no cold intolerance, no heat intolerance, no polyphagia, no excessive thirst, no polyuria, no nocturia Hematologic/Lymphatic: no easy bruising, no easy bleeding, no lymphadenopathy Allergic/Immunologic: no urticaria, no allergic rhinitis, no persistent infections, no anaphylaxis, no angioedema Exam - Constitutional Vitals: Temp Pulse Resp BP Pulse Ox 99.0 F 91 H 16 120/55 95 02/24/19 07:00 02/24/19 10:21 02/24/19 11:19 02/24/19 11:48 02/24/19 11:19 General appearance: Present: mild distress - EENT Eyes: Present: PERRL ENT: hearing intact, clear oral mucosa - Neck Neck: Present: supple, normal ROM - Respiratory Respiratory effort: normal Respiratory: bilateral: diminished, rhonchi - Cardiovascular Heart Sounds: Present: S1 & S2. Absent: rub, click - Extremities Extremities: pulses symmetrical, No edema Peripheral Pulses: within normal limits - Abdominal General gastrointestinal: Present: soft, non-tender, non-distended, normal bowel sounds Female genitourinary: Present: normal - Integumentary Integumentary: Present: clear, warm, dry - Musculoskeletal Musculoskeletal: generalized weakness - Psychiatric Psychiatric: appropriate mood/affect, intact judgment & insight - Neurologic Neurologic: CNII-XII intact, moves all extremities Results - Labs CBC & Chem 7: 02/24/19 Unknown 02/24/19 Unknown Labs: Abnormal lab results 02/24/19 02/24/19 02/24/19 Range/Units Unknown Unknown Unknown WBC 12.3 H (4.5-11.0) K/mm3 RDW 15.6 H (13.2-15.2) % Lymph % (Auto) 10.0 L (13.4-35.0) % Seg Neutrophils % 83.0 H (40.0-70.0) % Seg Neutrophils # 10.2 H (1.8-7.7) K/mm3 D-Dimer (0-234) ng/mlDDU Oxyhemoglobin (95.0-99.0) % Glucose 112 H (65-100) mg/dL ALT 6 L (7-56) units/L Ammonia 116.0 H (25-60) umol/L Total Creatine Kinase 21 L (30-135) units/L CK-MB (CK-2) Rel Index 6.6 H (0-4) Albumin 3.4 L (3.9-5) g/dL 02/24/19 02/24/19 Range/Units Unknown Unknown WBC (4.5-11.0) K/mm3 RDW (13.2-15.2) % Lymph % (Auto) (13.4-35.0) % Seg Neutrophils % (40.0-70.0) % Seg Neutrophils # (1.8-7.7) K/mm3 D-Dimer 331.59 H (0-234) ng/mlDDU Oxyhemoglobin 92.8 L (95.0-99.0) % Glucose (65-100) mg/dL ALT (7-56) units/L Ammonia (25-60) umol/L Total Creatine Kinase (30-135) units/L CK-MB (CK-2) Rel Index (0-4) Albumin (3.9-5) g/dL Assessment and Plan - Patient Problems (1) Respiratory failure Current Visit: Yes Status: Acute Qualifiers: Chronicity: acute Respiratory failure complication: hypoxia Qualified Code(s): J96.01 - Acute respiratory failure with hypoxia Plan to address problem: Supplemental oxygen, nebulizer therapy, Chest x ray, pulse oximetry, NIPPV as clinically indicated, CTA chest, supportive care. (2) RLL pneumonia Current Visit: Yes Status: Acute Plan to address problem: Pneumonia protocol: IV antibiotic therapy, blood cultures, CBC, CMP, Chest x ray, nebulizer therapy, pulse oximetry. (3) SIRS (systemic inflammatory response syndrome) Current Visit: Yes Status: Acute Plan to address problem: IV antibiotic therapy, CBC, CMP, blood cultures, serial lactic acid level, urinalysis. (4) Bipolar 1 disorder Current Visit: Yes Status: Acute Plan to address problem: continue current therapy, controlled at time of admission (5) HTN (hypertension) Current Visit: Yes Status: Acute Qualifiers: Hypertension type: essential hypertension Qualified Code(s): I10 - Essential (primary) hypertension Plan to address problem: Monitor BP q shift, supportive care. (6) Lung cancer Current Visit: Yes Status: Acute Qualifiers: Laterality: right Plan to address problem: CT chest, Olcology F/U as outpatient. (7) COPD exacerbation Current Visit: Yes Status: Acute Plan to address problem: supplemental oxygen, nebulizer therapy, pulse oximetry, IV antibiotic therapy, supportive care, Treat pneumonia (8) Chronic atrial fibrillation Current Visit: No Status: Acute Plan to address problem: Continue therapeutic anticoagulation, remote telemetry monitoring. (9) Anxiety Current Visit: Yes Status: Acute Plan to address problem: Ativan prn, neuro checks. (10) Depression Current Visit: Yes Status: Acute Plan to address problem: Ativan prn, supportive care. (11) Seizure Current Visit: Yes Status: Acute Plan to address problem: Continue keppra, no active seizure activity at time of admission, seizure precautions, neuro checks (12) Right lower lobe lung mass Current Visit: Yes Status: Acute Plan to address problem: CT chest, outpatient oncology F/U care. (13) DVT prophylaxis Current Visit: Yes Status: Acute Plan to address problem: SCD to ble while in bed, continue therapeutic anticoagulation.
[2019-02-24] MEDS ORDERED: ZOFRAN ODT PO PRN (12:18)
[2019-02-24] MEDS ORDERED: SODIUM CHLORIDE FLUSH SYRINGE 10 ML IV PRN (12:24)
[2019-02-24] MEDS ORDERED: TYLENOL PO PRN (12:24)
[2019-02-24] MEDS ORDERED: NORCO 10/325 PO PRN (13:00)
[2019-02-24] MEDS ORDERED: ATIVAN IV PRN (14:56)
[2019-02-24 15:07] LABS: Amphetamine Screen,Urine PRESUMPTIVE NEGATIVE; Benzodiazepines Screen,Urine PRESUMPTIVE NEGATIVE; Cannabinoid Screen,Urine PRESUMPTIVE NEGATIVE; Cocaine Screen,Urine PRESUMPTIVE NEGATIVE; Methadone Screen,Urine PRESUMPTIVE NEGATIVE; Opiate Screen,Urine PRESUMPTIVE NEGATIVE
[2019-02-24 15:20] LABS: Bacteria,Urine 4+ /HPF (Negative); Bilirubin,Urine NEG (Negative); Blood,Urine MOD (Negative); Calcium Phosphate Crystals,Ur 2+; Color,Urine Yellow (Yellow); Mucus,Urine FEW /HPF; Protein,Urine <15 mg/dL mg/dL (Negative)
[2019-02-24] MEDS: ZOFRAN IV PRN (20:29)
[2019-02-24] MEDS: ELIQUIS PO SCH (21:31)
[2019-02-24] MEDS: PROAMATINE PO SCH (21:32)
[2019-02-24] MEDS: KEPPRA PO SCH (21:32)
[2019-02-24] MEDS: PRAVACHOL PO SCH (21:32)
[2019-02-24] MEDS: PEPCID PO SCH (21:32)
[2019-02-24] MEDS: SODIUM CHLORIDE FLUSH SYRINGE 10 ML IV SCH (21:33)
[2019-02-24] MEDS ORDERED: NON-FORMULARY (Simvastatin 40 MG) PO SCH (22:00)
[2019-02-24] MEDS: TOPAMAX PO SCH (22:25)
[2019-02-25] MEDS: ZOFRAN IV PRN (03:37)
[2019-02-25 06:25] LABS: BUN/Creatinine Ratio 26; Blood Urea Nitrogen 18 mg/dL (7-17); Calcium 8.2 mg/dL (8.4-10.2); Hemolysis Index 0
[2019-02-25 06:32] LABS: Basophils % (Auto) 0.1 % (0.0-1.8); Eosinophils # (Auto) 0.1 K/mm3 (0.0-0.4); Eosinophils % (Auto) 0.6 % (0.0-4.3); Hematocrit 37.5 % (30.3-42.9); Hemoglobin 12.4 gm/dl (10.1-14.3); Lymphocytes # (Auto) 1.3 K/mm3 (1.2-5.4); Lymphocytes % (Auto) 10.7 % (13.4-35.0); Mean Corpuscular HGB Conc 33 % (30-34); Mean Corpuscular Volume 97 fl (79-97); Monocytes # (Auto) 0.6 K/mm3 (0.0-0.8); Platelet Count 337 K/mm3 (140-440); Red Blood Count 3.89 M/mm3 (3.65-5.03)
--- NOTE | 2019-02-25 09:37 | Progress Note ---
Assessment and Plan Assessment and plan: Acute hypoxic respiratory failure. Continue supplemental oxygen. Follow-up chest x-ray. BiPAP as clinically indicated. Right lower lobe pneumonia.? Postobstructive. Continue IV antibiotics and serial chest x-ray. Acute COPD exacerbation. Continue bronchodilators/nebulizer treatment, IV antibiotics and supportive care. Patient refusing systemic steroids. Sepsis. Follow-up blood cultures and serial lactic acid levels. Bipolar disorder. Continue home medications. Hypertension. Continue antihypertensive medications. Right lower lobe lung mass/Lung cancer. Consider oncology consultation. Chronic atrial fibrillation. Continue anticoagulation and telemetry monitoring. Depression/Anxiety disorder. Continue medications. Seizure disorder. Continue Keppra. Seizure precautions. History Interval history: Patient still reports dyspnea with exertion. Hospitalist Physical - Constitutional Vitals: Temp Pulse Resp BP Pulse Ox 97.2 F L 77 18 113/56 97 02/25/19 04:40 02/25/19 04:40 02/25/19 04:40 02/25/19 04:40 02/25/19 04:40 General appearance: Present: mild distress - EENT Eyes: Present: PERRL, EOM intact ENT: hearing intact, clear oral mucosa, dentition normal - Neck Neck: Present: supple, normal ROM - Respiratory Respiratory effort: normal Respiratory: bilateral: wheezing - Cardiovascular Rhythm: regular Heart Sounds: Present: S1 & S2. Absent: gallop, rub - Extremities Extremities: no ischemia, No edema, Full ROM - Abdominal General gastrointestinal: soft, non-tender, non-distended, normal bowel sounds - Integumentary Integumentary: Present: clear, warm, dry - Neurologic Neurologic: CNII-XII intact, moves all extremities Results - Labs CBC & Chem 7: 02/25/19 05:24 02/25/19 05:24 Labs: Laboratory Last Values WBC 11.9 K/mm3 (4.5-11.0) H 02/25/19 05:24 RBC 3.89 M/mm3 (3.65-5.03) 02/25/19 05:24 Hgb 12.4 gm/dl (10.1-14.3) 02/25/19 05:24 Hct 37.5 % (30.3-42.9) 02/25/19 05:24 MCV 97 fl (79-97) 02/25/19 05:24 MCH 32 pg (28-32) 02/25/19 05:24 MCHC 33 % (30-34) 02/25/19 05:24 RDW 16.0 % (13.2-15.2) H 02/25/19 05:24 Plt Count 337 K/mm3 (140-440) 02/25/19 05:24 Lymph % (Auto) 10.7 % (13.4-35.0) L 02/25/19 05:24 [place] % (Auto) [place] 02/25/19 05:24 Eos % (Auto) 0.6 % (0.0-4.3) 02/25/19 05:24 Baso % (Auto) 0.1 % (0.0-1.8) 02/25/19 05:24 Lymph # 1.3 K/mm3 (1.2-5.4) 02/25/19 05:24 [place] # 0.6 K/mm3 (0.0-0.8) 02/25/19 05:24 Eos # 0.1 K/mm3 (0.0-0.4) 02/25/19 05:24 Baso # 0.0 K/mm3 (0.0-0.1) 02/25/19 05:24 Seg Neutrophils % 83.3 % (40.0-70.0) H 02/25/19 05:24 Seg Neutrophils # 9.9 K/mm3 (1.8-7.7) H 02/25/19 05:24 PT 14.1 Sec. (12.2-14.9) 02/24/19 Unknown INR 1.12 (0.87-1.13) 02/24/19 Unknown APTT 27.1 Sec. (24.2-36.6) 02/24/19 Unknown 331.59 ng/mlDDU (0-234) H 02/24/19 Unknown ABG pH 7.360 pH Units (7.350-7.450) 02/24/19 Unknown ABG pCO2 46.1 mm Hg 02/24/19 Unknown ABG pO2 83.8 mm Hg (80.0-90.0) 02/24/19 Unknown ABG HCO3 25.5 mmol/L (20.0-26.0) 02/24/19 Unknown ABG O2 Saturation 96.4 % (95.0-99.0) 02/24/19 Unknown ABG O2 Content 18.5 (0.0-44) 02/24/19 Unknown ABG Base Excess -0.3 mmol/L (-2.0-3.0) 02/24/19 Unknown ABG Hemoglobin 14.2 gm/dl (12.0-16.0) 02/24/19 Unknown ABG Carboxyhemoglobin 3.3 % (0.0-5.0) 02/24/19 Unknown ABG Methemoglobin 0.5 % (0.0-1.5) 02/24/19 Unknown 92.8 % (95.0-99.0) L 02/24/19 Unknown 21 % 02/24/19 Unknown Sodium 139 mmol/L (137-145) 02/25/19 05:24 Potassium 4.3 mmol/L (3.6-5.0) 02/25/19 05:24 Chloride 103.8 mmol/L (98-107) 02/25/19 05:24 Carbon Dioxide 27 mmol/L (22-30) 02/25/19 05:24 13 mmol/L 02/25/19 05:24 BUN 18 mg/dL (7-17) H 02/25/19 05:24 0.7 mg/dL (0.7-1.2) 02/25/19 05:24 Estimated GFR > 60 ml/min 02/25/19 05:24 26 % 02/25/19 05:24 Glucose 160 mg/dL (65-100) H 02/25/19 05:24 Lactic Acid 0.90 mmol/L (0.7-2.0) 02/24/19 Unknown Lactic Acid 2.50 mmol/L (0.7-2.0) H* 02/24/19 Unknown Calcium 8.2 mg/dL (8.4-10.2) L 02/25/19 05:24 0.30 mg/dL (0.1-1.2) 02/24/19 Unknown < 0.2 mg/dL (0-0.2) 02/24/19 Unknown AST 11 units/L (5-40) 02/24/19 Unknown ALT 6 units/L (7-56) L 02/24/19 Unknown 102 units/L (35-129) 02/24/19 Unknown 116.0 umol/L (25-60) H 02/24/19 Unknown 21 units/L (30-135) L 02/24/19 Unknown CK-MB (CK-2) 1.4 ng/mL (0.0-4.0) 02/24/19 Unknown CK-MB (CK-2) Rel Index 6.6 (0-4) H 02/24/19 Unknown < 0.010 ng/mL (0.00-0.029) 02/24/19 Unknown NT-Pro-B Natriuret Pep 635.6 pg/mL (0-900) 02/24/19 Unknown 6.7 g/dL (6.3-8.2) 02/24/19 Unknown 3.4 g/dL (3.9-5) L 02/24/19 Unknown 1.0 % 02/24/19 Unknown Yellow (Yellow) 02/24/19 Unknown Cloudy (Clear) 02/24/19 Unknown 7.0 (5.0-7.0) 02/24/19 Unknown Ur Specific [place] 1.015 (1.003-1.030) 02/24/19 Unknown <15 mg/dl mg/dL (Negative) 02/24/19 Unknown Neg mg/dL (Negative) 02/24/19 Unknown Neg mg/dL (Negative) 02/24/19 Unknown Mod (Negative) 02/24/19 Unknown Neg (Negative) 02/24/19 Unknown Neg (Negative) 02/24/19 Unknown 2.0 mg/dL (<2.0) 02/24/19 Unknown Ur Leukocyte Esterase Tr (Negative) 02/24/19 Unknown 7.0 /HPF (0.0-6.0) H 02/24/19 Unknown 56.0 /HPF (0.0-6.0) 02/24/19 Unknown U Epithel Cells (Auto) 1.0 /HPF (0-13.0) 02/24/19 Unknown 4+ /HPF (Negative) 02/24/19 Unknown Calcium Phosphate Cryst 2+ 02/24/19 Unknown Few /HPF 02/24/19 Unknown Presumptive negative 02/24/19 14:30 Presumptive negative 02/24/19 14:30 Ur Barbiturates Screen Presumptive negative 02/24/19 14:30 Ur Phencyclidine Scrn Presumptive negative 02/24/19 14:30 Ur Amphetamines Screen Presumptive negative 02/24/19 14:30 U Benzodiazepines Scrn Presumptive negative 02/24/19 14:30 Presumptive negative 02/24/19 14:30 U Marijuana (THC) Screen Presumptive negative 02/24/19 14:30 Disclamer 02/24/19 14:30 Active Medications - Current Medications Current Medications: Generic Name Dose Route Start Last Admin Trade Name Freq PRN Reason Stop Dose Admin Acetaminophen 650 mg 02/24/19 12:24 Tylenol PO Q4H PRN Pain MILD(1-3)/Fever >100.5/KRISHNAN Acetaminophen/Hydrocodone Bitart 1 each 02/24/19 13:00 [place] 10/325 PO Q6H PRN Pain Apixaban 5 mg 02/24/19 22:00 02/24/19 21:31 Eliquis PO 5 mg BID ALONDRA Administration Protocol Aspirin 81 mg 02/25/19 10:00 Baby Aspirin PO QDAY ALONDRA Atorvastatin Calcium 40 mg 02/24/19 22:00 02/24/19 21:32 Lipitor PO 40 mg QHS ALONDRA Administration Famotidine 20 mg 02/24/19 22:00 02/24/19 21:32 Pepcid PO 20 mg BID ALONDRA Administration Hydrochlorothiazide 12.5 mg 02/25/19 10:00 Hctz PO QDAY ALONDRA Levofloxacin/Dextrose 750 mg in 150 mls @ 100 mls/hr 02/25/19 10:00 Levaquin 750mg/150ml IV Q24HR [facility] Protocol Levetiracetam 750 mg 02/24/19 22:00 02/24/19 21:32 Keppra PO 750 mg QHS ALONDRA Administration Lorazepam 1 mg 02/24/19 14:56 02/24/19 22:25 Ativan IV 1 mg Q8H PRN Administration Anxiety Midodrine 5 mg 02/25/19 10:00 Proamatine PO QAM ALONDRA Midodrine 5 mg 02/24/19 22:00 02/24/19 21:32 Proamatine PO 5 mg QHS ALONDRA Administration Ondansetron HCl 8 mg 02/24/19 12:18 Zofran Odt PO Q8HR PRN Nausea And Vomiting Ondansetron HCl 4 mg 02/24/19 12:24 02/25/19 03:37 Zofran IV 4 mg Q8H PRN Administration Nausea And Vomiting Pantoprazole Sodium 40 mg 02/25/19 10:00 Protonix PO QDAY ALONDRA Potassium Chloride 20 meq 02/25/19 10:00 K-Dur PO QDAY ALONDRA Pravastatin Sodium 80 mg 02/24/19 22:00 02/24/19 21:32 Pravachol PO 80 mg QHS ALONDRA Administration Sodium Chloride 10 ml 02/24/19 22:00 02/24/19 21:33 Sodium Chloride Flush Syringe 10 Ml IV 10 ml BID ALONDRA Administration Sodium Chloride 10 ml 02/24/19 12:24 Sodium Chloride Flush Syringe 10 Ml IV PRN PRN LINE FLUSH Topiramate 100 mg 02/25/19 10:00 Topamax PO QAM ALONDRA Topiramate 200 mg 02/24/19 22:00 02/24/19 22:25 Topamax PO 200 mg QHS ALONDRA Administration
[2019-02-25] MEDS: PROAMATINE PO SCH ×2 (09:56→21:18)
[2019-02-25] MEDS: PROTONIX PO SCH (09:56)
[2019-02-25] MEDS: ELIQUIS PO SCH ×2 (09:57→21:17)
[2019-02-25] MEDS: PEPCID PO SCH ×2 (09:57→21:18)
[2019-02-25] MEDS: K-DUR PO SCH (09:57)
[2019-02-25] MEDS: BABY ASPIRIN PO SCH (09:57)
[2019-02-25] MEDS: TOPAMAX PO SCH ×2 (09:58→21:18)
[2019-02-25] MEDS: SODIUM CHLORIDE FLUSH SYRINGE 10 ML IV SCH ×2 (09:59→21:22)
[2019-02-25] MEDS ORDERED: POTASSIUM CHLORIDE PO SCH (10:00)
[2019-02-25] MEDS ORDERED: LEVAQUIN PO SCH (10:00)
[2019-02-25] MEDS ORDERED: LEVAQUIN 750MG/150ML 750 MG/150 ML BAG IV SCH (10:00)
[2019-02-25] MEDS ORDERED: DOXYCYCLINE HYCLATE 200 MG in NACL 0.9% 250ML 250 ML IV SCH (12:00)
[2019-02-25] MEDS ORDERED: NACL 0.9% 250ML 250 ML IV ONE (13:00)
[2019-02-25] MEDS ORDERED: NACL 0.9% 1000 ML IV SCH (13:00)
[2019-02-25] MEDS: HCTZ PO SCH (13:00)
[2019-02-25] MEDS ORDERED: VANCOMYCIN/NS 1 GM/250 ML 1 GM/250 ML BAG IV SCH (13:00)
[2019-02-25] MEDS ORDERED: VANCOMYCIN 1,750 MG in NACL 0.9% 500 ML 500 ML IV ONE (14:00)
[2019-02-25] MEDS: NACL 0.9% 1000 ML 1,000 ML IV SCH (15:45)
[2019-02-25] MEDS: PRAVACHOL PO SCH (21:17)
[2019-02-25] MEDS: KEPPRA PO SCH (21:18)
[2019-02-25] MEDS ORDERED: AMBIEN PO PRN (22:14)
[2019-02-25] MEDS: DOXYCYCLINE HYCLATE 100 MG in NACL 0.9% 250ML 250 ML IV SCH (23:13)
[2019-02-26] MEDS ORDERED: VANCOMYCIN 1,250 MG in NACL 0.9% 250ML 250 ML IV SCH (02:00)
[2019-02-26 05:03] LABS: Basophils # (Auto) 0.1 K/mm3 (0.0-0.1); Eosinophils # (Auto) 0.2 K/mm3 (0.0-0.4); Eosinophils % (Auto) 1.7 % (0.0-4.3); Hematocrit 36.5 % (30.3-42.9); Lymphocytes # (Auto) 1.1 K/mm3 (1.2-5.4); Mean Corpuscular HGB Conc 33 % (30-34); Mean Corpuscular Volume 98 fl (79-97); Monocytes # (Auto) 0.5 K/mm3 (0.0-0.8); Monocytes % (Auto) 4.8 % (0.0-7.3); Platelet Count 335 K/mm3 (140-440); Red Blood Count 3.74 M/mm3 (3.65-5.03); Red Cell Distribution Width 15.8 % (13.2-15.2)
[2019-02-26 05:23] LABS: BUN/Creatinine Ratio 20; Blood Urea Nitrogen 14 mg/dL (7-17); Calcium 7.5 mg/dL (8.4-10.2); Hemolysis Index 6
[2019-02-26] MEDS: NACL 0.9% 1000 ML 1,000 ML IV SCH (08:35)
--- NOTE | 2019-02-26 09:18 | Progress Note ---
Assessment and Plan Assessment and plan: Acute hypoxic respiratory failure. Continue supplemental oxygen. Follow-up chest x-ray. BiPAP as clinically indicated. Right lower lobe pneumonia.? Postobstructive. Continue IV antibiotics and serial chest x-ray. Right lower lobe lung mass/Lung cancer. Consider oncology consultation. Attempt to obtain old records regarding diagnosis Acute COPD exacerbation. Continue bronchodilators/nebulizer treatment, IV antibiotics and supportive care. Patient refusing systemic steroids. Sepsis. Initial blood cultures revealed coag-negative staph which is likely a contaminant. Continue to follow blood cultures. Lactic acid levels were previously elevated but now normalized. Continue IV fluids for volume resuscitation. Orthostatic hypotension. Patient reported dizziness upon standing. IV fluid hydration. Bipolar disorder. Continue home medications. Hypertension. Continue antihypertensive medications. Chronic atrial fibrillation. Continue anticoagulation and telemetry monitoring. Depression/Anxiety disorder. Continue medications. Seizure disorder. Continue Keppra. Seizure precautions. History Interval history: Patient still reports dyspnea with exertion. Patient also reports dizziness upon standing. Hospitalist Physical - Constitutional Vitals: Temp Pulse Resp BP Pulse Ox 100.9 F H 98 H 18 119/64 97 02/26/19 05:21 02/26/19 05:21 02/26/19 05:21 02/26/19 05:21 02/26/19 05:21 General appearance: Present: mild distress - EENT Eyes: Present: PERRL, EOM intact ENT: hearing intact, clear oral mucosa, dentition normal - Neck Neck: Present: supple, normal ROM - Respiratory Respiratory effort: normal Respiratory: bilateral: CTA - Cardiovascular Rhythm: regular Heart Sounds: Present: S1 & S2. Absent: gallop, rub - Extremities Extremities: no ischemia, No edema, Full ROM - Abdominal General gastrointestinal: soft, non-tender, non-distended, normal bowel sounds - Integumentary Integumentary: Present: clear, warm, dry - Neurologic Neurologic: CNII-XII intact, moves all extremities Results - Labs CBC & Chem 7: 02/26/19 04:46 02/26/19 04:46 Labs: Laboratory Last Values WBC 10.3 K/mm3 (4.5-11.0) 02/26/19 04:46 RBC 3.74 M/mm3 (3.65-5.03) 02/26/19 04:46 Hgb 12.0 gm/dl (10.1-14.3) 02/26/19 04:46 Hct 36.5 % (30.3-42.9) 02/26/19 04:46 MCV 98 fl (79-97) H 02/26/19 04:46 MCH 32 pg (28-32) 02/26/19 04:46 MCHC 33 % (30-34) 02/26/19 04:46 RDW 15.8 % (13.2-15.2) H 02/26/19 04:46 Plt Count 335 K/mm3 (140-440) 02/26/19 04:46 Lymph % (Auto) 11.0 % (13.4-35.0) L 02/26/19 04:46 [place] % (Auto) 4.8 % (0.0-7.3) 02/26/19 04:46 Eos % (Auto) 1.7 % (0.0-4.3) 02/26/19 04:46 Baso % (Auto) 1.0 % (0.0-1.8) 02/26/19 04:46 Lymph # 1.1 K/mm3 (1.2-5.4) L 02/26/19 04:46 [place] # 0.5 K/mm3 (0.0-0.8) 02/26/19 04:46 Eos # 0.2 K/mm3 (0.0-0.4) 02/26/19 04:46 Baso # 0.1 K/mm3 (0.0-0.1) 02/26/19 04:46 Seg Neutrophils % 81.5 % (40.0-70.0) H 02/26/19 04:46 Seg Neutrophils # 8.4 K/mm3 (1.8-7.7) H 02/26/19 04:46 PT 14.1 Sec. (12.2-14.9) 02/24/19 Unknown INR 1.12 (0.87-1.13) 02/24/19 Unknown APTT 27.1 Sec. (24.2-36.6) 02/24/19 Unknown 331.59 ng/mlDDU (0-234) H 02/24/19 Unknown ABG pH 7.360 pH Units (7.350-7.450) 02/24/19 Unknown ABG pCO2 46.1 mm Hg 02/24/19 Unknown ABG pO2 83.8 mm Hg (80.0-90.0) 02/24/19 Unknown ABG HCO3 25.5 mmol/L (20.0-26.0) 02/24/19 Unknown ABG O2 Saturation 96.4 % (95.0-99.0) 02/24/19 Unknown ABG O2 Content 18.5 (0.0-44) 02/24/19 Unknown ABG Base Excess -0.3 mmol/L (-2.0-3.0) 02/24/19 Unknown ABG Hemoglobin 14.2 gm/dl (12.0-16.0) 02/24/19 Unknown ABG Carboxyhemoglobin 3.3 % (0.0-5.0) 02/24/19 Unknown ABG Methemoglobin 0.5 % (0.0-1.5) 02/24/19 Unknown 92.8 % (95.0-99.0) L 02/24/19 Unknown 21 % 02/24/19 Unknown Sodium 139 mmol/L (137-145) 02/26/19 04:46 Potassium 4.4 mmol/L (3.6-5.0) 02/26/19 04:46 Chloride 105.1 mmol/L (98-107) 02/26/19 04:46 Carbon Dioxide 24 mmol/L (22-30) 02/26/19 04:46 14 mmol/L 02/26/19 04:46 BUN 14 mg/dL (7-17) 02/26/19 04:46 0.7 mg/dL (0.7-1.2) 02/26/19 04:46 Estimated GFR > 60 ml/min 02/26/19 04:46 20 % 02/26/19 04:46 Glucose 112 mg/dL (65-100) H 02/26/19 04:46 Lactic Acid 1.10 mmol/L (0.7-2.0) 02/25/19 13:35 Calcium 7.5 mg/dL (8.4-10.2) L 02/26/19 04:46 0.30 mg/dL (0.1-1.2) 02/24/19 Unknown < 0.2 mg/dL (0-0.2) 02/24/19 Unknown AST 11 units/L (5-40) 02/24/19 Unknown ALT 6 units/L (7-56) L 02/24/19 Unknown 102 units/L (35-129) 02/24/19 Unknown 116.0 umol/L (25-60) H 02/24/19 Unknown 21 units/L (30-135) L 02/24/19 Unknown CK-MB (CK-2) 1.4 ng/mL (0.0-4.0) 02/24/19 Unknown CK-MB (CK-2) Rel Index 6.6 (0-4) H 02/24/19 Unknown < 0.010 ng/mL (0.00-0.029) 02/24/19 Unknown NT-Pro-B Natriuret Pep 635.6 pg/mL (0-900) 02/24/19 Unknown 6.7 g/dL (6.3-8.2) 02/24/19 Unknown 3.4 g/dL (3.9-5) L 02/24/19 Unknown 1.0 % 02/24/19 Unknown Yellow (Yellow) 02/24/19 Unknown Cloudy (Clear) 02/24/19 Unknown 7.0 (5.0-7.0) 02/24/19 Unknown Ur Specific [place] 1.015 (1.003-1.030) 02/24/19 Unknown <15 mg/dl mg/dL (Negative) 02/24/19 Unknown Neg mg/dL (Negative) 02/24/19 Unknown Neg mg/dL (Negative) 02/24/19 Unknown Mod (Negative) 02/24/19 Unknown Neg (Negative) 02/24/19 Unknown Neg (Negative) 02/24/19 Unknown 2.0 mg/dL (<2.0) 02/24/19 Unknown Ur Leukocyte Esterase Tr (Negative) 02/24/19 Unknown 7.0 /HPF (0.0-6.0) H 02/24/19 Unknown 56.0 /HPF (0.0-6.0) 02/24/19 Unknown U Epithel Cells (Auto) 1.0 /HPF (0-13.0) 02/24/19 Unknown 4+ /HPF (Negative) 02/24/19 Unknown Calcium Phosphate Cryst 2+ 02/24/19 Unknown Few /HPF 02/24/19 Unknown Presumptive negative 02/24/19 14:30 Presumptive negative 02/24/19 14:30 Ur Barbiturates Screen Presumptive negative 02/24/19 14:30 Ur Phencyclidine Scrn Presumptive negative 02/24/19 14:30 Ur Amphetamines Screen Presumptive negative 02/24/19 14:30 U Benzodiazepines Scrn Presumptive negative 02/24/19 14:30 Presumptive negative 02/24/19 14:30 U Marijuana (THC) Screen Presumptive negative 02/24/19 14:30 Disclamer 02/24/19 14:30 Active Medications - Current Medications Current Medications: Generic Name Dose Route Start Last Admin Trade Name Freq PRN Reason Stop Dose Admin Acetaminophen 650 mg 02/24/19 12:24 Tylenol PO Q4H PRN Pain MILD(1-3)/Fever >100.5/KRISHNAN Acetaminophen/Hydrocodone Bitart 1 each 02/24/19 13:00 [place] 10/325 PO Q6H PRN Pain Apixaban 5 mg 02/24/19 22:00 02/25/19 21:17 Eliquis PO 5 mg BID ALONDRA Administration Protocol Aspirin 81 mg 02/25/19 10:00 02/25/19 09:57 Baby Aspirin PO 81 mg QDAY ALONDRA Administration Atorvastatin Calcium 40 mg 02/24/19 22:00 02/25/19 21:18 Lipitor PO 40 mg QHS ALONDRA Administration Famotidine 20 mg 02/24/19 22:00 02/25/19 21:18 Pepcid PO 20 mg BID ALONDRA Administration Hydrochlorothiazide 12.5 mg 02/25/19 10:00 02/25/19 13:00 Hctz PO Not Given QDAY ALONDRA Sodium Chloride 1,000 mls @ 75 mls/hr 02/25/19 14:00 02/26/19 08:35 Nacl 0.9% 1000 Ml IV 75 mls/hr DIRECT ALONDRA Administration Vancomycin HCl 1,250 mg/ 275 mls @ 183.333 mls/hr 02/26/19 02:00 02/26/19 02:20 Sodium Chloride IV 183.333 mls/hr Q12H ALONDRA Administration Doxycycline Hyclate 100 mg/ 250 mls @ 250 mls/hr 02/26/19 00:00 02/25/19 23:13 Sodium Chloride IV 250 mls/hr Q12H ALONDRA Administration Levetiracetam 750 mg 02/24/19 22:00 02/25/19 21:18 Keppra PO 750 mg QHS ALONDRA Administration Lorazepam 1 mg 02/24/19 14:56 02/24/19 22:25 Ativan IV 1 mg Q8H PRN Administration Anxiety Midodrine 5 mg 02/25/19 10:00 02/25/19 09:56 Proamatine PO 5 mg QAM ALONDRA Administration Midodrine 5 mg 02/24/19 22:00 02/25/19 21:18 Proamatine PO 5 mg QHS ALONDRA Administration Ondansetron HCl 8 mg 02/24/19 12:18 Zofran Odt PO Q8HR PRN Nausea And Vomiting Ondansetron HCl 4 mg 02/24/19 12:24 02/25/19 03:37 Zofran IV 4 mg Q8H PRN Administration Nausea And Vomiting Pantoprazole Sodium 40 mg 02/25/19 10:00 02/25/19 09:56 Protonix PO 40 mg QDAY ALONDRA Administration Potassium Chloride 20 meq 02/25/19 10:00 02/25/19 09:57 K-Dur PO 20 meq QDAY ALONDRA Administration Pravastatin Sodium 80 mg 02/24/19 22:00 02/25/19 21:17 Pravachol PO 80 mg QHS ALONDRA Administration Sodium Chloride 10 ml 02/24/19 22:00 02/25/19 21:22 Sodium Chloride Flush Syringe 10 Ml IV 10 ml BID ALONDRA Administration Sodium Chloride 10 ml 02/24/19 12:24 Sodium Chloride Flush Syringe 10 Ml IV PRN PRN LINE FLUSH Topiramate 100 mg 02/25/19 10:00 02/25/19 09:58 Topamax PO 100 mg QAM ALONDRA Administration Topiramate 200 mg 02/24/19 22:00 02/25/19 21:18 Topamax PO 200 mg QHS ALONDRA Administration Zolpidem Tartrate 10 mg 02/25/19 22:14 Ambien PO QHS PRN Insomnia
[2019-02-26] MEDS: SODIUM CHLORIDE FLUSH SYRINGE 10 ML IV SCH ×2 (10:00→21:11)
[2019-02-26] MEDS: PROTONIX PO SCH (10:18)
[2019-02-26] MEDS: ELIQUIS PO SCH ×2 (10:19→21:11)
[2019-02-26] MEDS: PROAMATINE PO SCH ×2 (10:19→21:11)
[2019-02-26] MEDS: PEPCID PO SCH ×2 (10:19→21:11)
[2019-02-26] MEDS: BABY ASPIRIN PO SCH (10:19)
[2019-02-26] MEDS: K-DUR PO SCH (10:20)
[2019-02-26] MEDS: TOPAMAX PO SCH ×2 (10:29→23:02)
[2019-02-26] MEDS: DOXYCYCLINE HYCLATE 100 MG in NACL 0.9% 250ML 250 ML IV SCH ×2 (13:50→23:01)
[2019-02-26] MEDS: HCTZ PO SCH (13:51)
[2019-02-26] MEDS: PRAVACHOL PO SCH (21:11)
[2019-02-26] MEDS: VANCOMYCIN 1,750 MG in NACL 0.9% 500 ML 500 ML IV SCH (21:11)
[2019-02-26] MEDS: KEPPRA PO SCH (21:11)
[2019-02-27] MEDS: NACL 0.9% 1000 ML 1,000 ML IV SCH ×2 (03:34→16:53)
[2019-02-27] MEDS: HCTZ PO SCH (09:17)
[2019-02-27] MEDS: BABY ASPIRIN PO SCH (09:17)
[2019-02-27] MEDS: ELIQUIS PO SCH ×2 (09:17→21:31)
[2019-02-27] MEDS: TOPAMAX PO SCH ×2 (09:17→21:31)
[2019-02-27] MEDS: PROAMATINE PO SCH ×2 (09:17→21:31)
[2019-02-27] MEDS: K-DUR PO SCH (09:18)
[2019-02-27] MEDS: PEPCID PO SCH ×2 (09:18→21:31)
[2019-02-27] MEDS: PROTONIX PO SCH (09:18)
[2019-02-27] MEDS: SODIUM CHLORIDE FLUSH SYRINGE 10 ML IV SCH ×2 (09:19→21:31)
--- NOTE | 2019-02-27 10:06 | Progress Note ---
Assessment and Plan Assessment and plan: Acute hypoxic respiratory failure. Continue supplemental oxygen. Follow-up chest x-ray. BiPAP as clinically indicated. Right lower lobe pneumonia.? Postobstructive. Continue IV antibiotics and serial chest x-ray. Right lower lobe lung mass/Lung cancer. Consider oncology consultation. Attempt to obtain old records regarding diagnosis Acute COPD exacerbation. Continue bronchodilators/nebulizer treatment, IV antibiotics and supportive care. Patient refusing systemic steroids. Sepsis. Initial blood cultures revealed coag-negative staph which is likely a contaminant. Continue to follow blood cultures. Lactic acid levels were previously elevated but now normalized. Continue IV fluids for volume resuscitation. Orthostatic hypotension. Patient reported dizziness upon standing. IV fluid hydration. Bipolar disorder. Continue home medications. Hypertension. Continue antihypertensive medications. Chronic atrial fibrillation. Continue anticoagulation and telemetry monitoring. Depression/Anxiety disorder. Continue medications. Seizure disorder. Continue Keppra. Seizure precautions. Disposition. Anticipate discharge in a.m. History Interval history: 69 Female with Atrial Fib on Therapeutic Anticoagulation, CVA, Bioplar Disorder, HTN, PTSD, Depression, Anxiety, Psychogenic Seizures, HLD, Lung Cancer, COPD, DVT, VA presents complaints of dyspnea. The patient was admitted with diagnosis of acute hypoxic respiratory failure secondary to right lower lobe pneumonia, sepsis and COPD exacerbation. Patient still reports dyspnea has improved. Patient denies any dizziness with standing. Hospitalist Physical - Constitutional Vitals: Temp Pulse Resp BP Pulse Ox 98.5 F 89 18 121/59 91 02/27/19 05:30 02/27/19 05:30 02/27/19 05:30 02/27/19 05:30 02/27/19 09:39 General appearance: Present: no acute distress - EENT Eyes: Present: PERRL, EOM intact ENT: hearing intact, clear oral mucosa, dentition normal - Neck Neck: Present: supple, normal ROM - Respiratory Respiratory effort: normal Respiratory: bilateral: diminished, rhonchi, wheezing - Cardiovascular Rhythm: regular Heart Sounds: Present: S1 & S2. Absent: gallop, rub - Extremities Extremities: no ischemia, No edema, Full ROM - Abdominal General gastrointestinal: soft, non-tender, non-distended, normal bowel sounds - Integumentary Integumentary: Present: clear, warm, dry - Neurologic Neurologic: CNII-XII intact, moves all extremities Results - Labs CBC & Chem 7: 02/26/19 04:46 02/26/19 04:46 Labs: Laboratory Last Values WBC 10.3 K/mm3 (4.5-11.0) 02/26/19 04:46 RBC 3.74 M/mm3 (3.65-5.03) 02/26/19 04:46 Hgb 12.0 gm/dl (10.1-14.3) 02/26/19 04:46 Hct 36.5 % (30.3-42.9) 02/26/19 04:46 MCV 98 fl (79-97) H 02/26/19 04:46 MCH 32 pg (28-32) 02/26/19 04:46 MCHC 33 % (30-34) 02/26/19 04:46 RDW 15.8 % (13.2-15.2) H 02/26/19 04:46 Plt Count 335 K/mm3 (140-440) 02/26/19 04:46 Lymph % (Auto) 11.0 % (13.4-35.0) L 02/26/19 04:46 [place] % (Auto) 4.8 % (0.0-7.3) 02/26/19 04:46 Eos % (Auto) 1.7 % (0.0-4.3) 02/26/19 04:46 Baso % (Auto) 1.0 % (0.0-1.8) 02/26/19 04:46 Lymph # 1.1 K/mm3 (1.2-5.4) L 02/26/19 04:46 [place] # 0.5 K/mm3 (0.0-0.8) 02/26/19 04:46 Eos # 0.2 K/mm3 (0.0-0.4) 02/26/19 04:46 Baso # 0.1 K/mm3 (0.0-0.1) 02/26/19 04:46 Seg Neutrophils % 81.5 % (40.0-70.0) H 02/26/19 04:46 Seg Neutrophils # 8.4 K/mm3 (1.8-7.7) H 02/26/19 04:46 PT 14.1 Sec. (12.2-14.9) 02/24/19 Unknown INR 1.12 (0.87-1.13) 02/24/19 Unknown APTT 27.1 Sec. (24.2-36.6) 02/24/19 Unknown 331.59 ng/mlDDU (0-234) H 02/24/19 Unknown ABG pH 7.360 pH Units (7.350-7.450) 02/24/19 Unknown ABG pCO2 46.1 mm Hg 02/24/19 Unknown ABG pO2 83.8 mm Hg (80.0-90.0) 02/24/19 Unknown ABG HCO3 25.5 mmol/L (20.0-26.0) 02/24/19 Unknown ABG O2 Saturation 96.4 % (95.0-99.0) 02/24/19 Unknown ABG O2 Content 18.5 (0.0-44) 02/24/19 Unknown ABG Base Excess -0.3 mmol/L (-2.0-3.0) 02/24/19 Unknown ABG Hemoglobin 14.2 gm/dl (12.0-16.0) 02/24/19 Unknown ABG Carboxyhemoglobin 3.3 % (0.0-5.0) 02/24/19 Unknown ABG Methemoglobin 0.5 % (0.0-1.5) 02/24/19 Unknown 92.8 % (95.0-99.0) L 02/24/19 Unknown 21 % 02/24/19 Unknown Sodium 139 mmol/L (137-145) 02/26/19 04:46 Potassium 4.4 mmol/L (3.6-5.0) 02/26/19 04:46 Chloride 105.1 mmol/L (98-107) 02/26/19 04:46 Carbon Dioxide 24 mmol/L (22-30) 02/26/19 04:46 14 mmol/L 02/26/19 04:46 BUN 14 mg/dL (7-17) 02/26/19 04:46 0.7 mg/dL (0.7-1.2) 02/26/19 04:46 Estimated GFR > 60 ml/min 02/26/19 04:46 20 % 02/26/19 04:46 Glucose 112 mg/dL (65-100) H 02/26/19 04:46 Lactic Acid 1.10 mmol/L (0.7-2.0) 02/25/19 13:35 Calcium 7.5 mg/dL (8.4-10.2) L 02/26/19 04:46 0.30 mg/dL (0.1-1.2) 02/24/19 Unknown < 0.2 mg/dL (0-0.2) 02/24/19 Unknown AST 11 units/L (5-40) 02/24/19 Unknown ALT 6 units/L (7-56) L 02/24/19 Unknown 102 units/L (35-129) 02/24/19 Unknown 116.0 umol/L (25-60) H 02/24/19 Unknown 21 units/L (30-135) L 02/24/19 Unknown CK-MB (CK-2) 1.4 ng/mL (0.0-4.0) 02/24/19 Unknown CK-MB (CK-2) Rel Index 6.6 (0-4) H 02/24/19 Unknown < 0.010 ng/mL (0.00-0.029) 02/24/19 Unknown NT-Pro-B Natriuret Pep 635.6 pg/mL (0-900) 02/24/19 Unknown 6.7 g/dL (6.3-8.2) 02/24/19 Unknown 3.4 g/dL (3.9-5) L 02/24/19 Unknown 1.0 % 02/24/19 Unknown Yellow (Yellow) 02/24/19 Unknown Cloudy (Clear) 02/24/19 Unknown 7.0 (5.0-7.0) 02/24/19 Unknown Ur Specific [place] 1.015 (1.003-1.030) 02/24/19 Unknown <15 mg/dl mg/dL (Negative) 02/24/19 Unknown Neg mg/dL (Negative) 02/24/19 Unknown Neg mg/dL (Negative) 02/24/19 Unknown Mod (Negative) 02/24/19 Unknown Neg (Negative) 02/24/19 Unknown Neg (Negative) 02/24/19 Unknown 2.0 mg/dL (<2.0) 02/24/19 Unknown Ur Leukocyte Esterase Tr (Negative) 02/24/19 Unknown 7.0 /HPF (0.0-6.0) H 02/24/19 Unknown 56.0 /HPF (0.0-6.0) 02/24/19 Unknown U Epithel Cells (Auto) 1.0 /HPF (0-13.0) 02/24/19 Unknown 4+ /HPF (Negative) 02/24/19 Unknown Calcium Phosphate Cryst 2+ 02/24/19 Unknown Few /HPF 02/24/19 Unknown Presumptive negative 02/24/19 14:30 Presumptive negative 02/24/19 14:30 Ur Barbiturates Screen Presumptive negative 02/24/19 14:30 Ur Phencyclidine Scrn Presumptive negative 02/24/19 14:30 Ur Amphetamines Screen Presumptive negative 02/24/19 14:30 U Benzodiazepines Scrn Presumptive negative 02/24/19 14:30 Presumptive negative 02/24/19 14:30 U Marijuana (THC) Screen Presumptive negative 02/24/19 14:30 Disclamer 02/24/19 14:30 Active Medications - Current Medications Current Medications: Generic Name Dose Route Start Last Admin Trade Name Freq PRN Reason Stop Dose Admin Acetaminophen 650 mg 02/24/19 12:24 Tylenol PO Q4H PRN Pain MILD(1-3)/Fever >100.5/KRISHNAN Acetaminophen/Hydrocodone Bitart 1 each 02/24/19 13:00 [place] 10/325 PO Q6H PRN Pain Apixaban 5 mg 02/24/19 22:00 02/27/19 09:17 Eliquis PO 5 mg BID ALONDRA Administration Protocol Aspirin 81 mg 02/25/19 10:00 02/27/19 09:17 Baby Aspirin PO 81 mg QDAY ALONDRA Administration Atorvastatin Calcium 40 mg 02/24/19 22:00 02/26/19 21:11 Lipitor PO 40 mg QHS ALONDRA Administration Famotidine 20 mg 02/24/19 22:00 02/27/19 09:18 Pepcid PO 20 mg BID ALONDRA Administration Hydrochlorothiazide 12.5 mg 02/25/19 10:00 02/27/19 09:17 Hctz PO 12.5 mg QDAY ALONDRA Administration Sodium Chloride 1,000 mls @ 75 mls/hr 02/25/19 14:00 02/27/19 03:34 Nacl 0.9% 1000 Ml IV 75 mls/hr DIRECT ALONDRA Administration Doxycycline Hyclate 100 mg/ 250 mls @ 250 mls/hr 02/26/19 00:00 02/26/19 23:01 Sodium Chloride IV 250 mls/hr Q12H ALONDRA Administration Vancomycin HCl 1,750 mg/ 535 mls @ 333.333 mls/hr 02/26/19 22:00 02/26/19 21:11 Sodium Chloride IV 333.333 mls/hr Q24HR@2200 ALONDRA Administration Levetiracetam 750 mg 02/24/19 22:00 02/26/19 21:11 Keppra PO 750 mg QHS ALONDRA Administration Lorazepam 1 mg 02/24/19 14:56 02/24/19 22:25 Ativan IV 1 mg Q8H PRN Administration Anxiety Midodrine 5 mg 02/25/19 10:00 02/27/19 09:17 Proamatine PO 5 mg QAM ALONDRA Administration Midodrine 5 mg 02/24/19 22:00 02/26/19 21:11 Proamatine PO 5 mg QHS ALONDRA Administration Ondansetron HCl 8 mg 02/24/19 12:18 Zofran Odt PO Q8HR PRN Nausea And Vomiting Ondansetron HCl 4 mg 02/24/19 12:24 02/25/19 03:37 Zofran IV 4 mg Q8H PRN Administration Nausea And Vomiting Pantoprazole Sodium 40 mg 02/25/19 10:00 02/27/19 09:18 Protonix PO 40 mg QDAY ALONDRA Administration Potassium Chloride 20 meq 02/25/19 10:00 02/27/19 09:18 K-Dur PO 20 meq QDAY ALONDRA Administration Pravastatin Sodium 80 mg 02/24/19 22:00 02/26/19 21:11 Pravachol PO 80 mg QHS ALONDRA Administration Sodium Chloride 10 ml 02/24/19 22:00 02/27/19 09:19 Sodium Chloride Flush Syringe 10 Ml IV 10 ml BID ALONDRA Administration Sodium Chloride 10 ml 02/24/19 12:24 02/26/19 13:52 Sodium Chloride Flush Syringe 10 Ml IV 10 ml PRN PRN Administration LINE FLUSH Topiramate 100 mg 02/25/19 10:00 02/27/19 09:17 Topamax PO 100 mg QAM ALONDRA Administration Topiramate 200 mg 02/24/19 22:00 02/26/19 23:02 Topamax PO 200 mg QHS ALONDRA Administration Zolpidem Tartrate 10 mg 02/25/19 22:14 Ambien PO QHS PRN Insomnia
[2019-02-27] MEDS: DOXYCYCLINE HYCLATE 100 MG in NACL 0.9% 250ML 250 ML IV SCH (12:21)
[2019-02-27] MEDS: ZOFRAN IV PRN ×2 (14:59→21:41)
[2019-02-27] MEDS: PRAVACHOL PO SCH (21:31)
[2019-02-27] MEDS: KEPPRA PO SCH (21:31)
[2019-02-28] MEDS: VANCOMYCIN 1,750 MG in NACL 0.9% 500 ML 500 ML IV SCH (05:40)
[2019-02-28] MEDS: NACL 0.9% 1000 ML 1,000 ML IV SCH (05:41)
--- NOTE | 2019-02-28 09:08 | Progress Note ---
Assessment and Plan Assessment and plan: Acute hypoxic respiratory failure. Continue supplemental oxygen. BiPAP as clinically indicated. Right lower lobe pneumonia.? Postobstructive. Continue IV antibiotics and serial chest x-ray. Lung cancer. patient states she had chemo and radiation last year Acute COPD exacerbation. Continue bronchodilators/nebulizer treatment, IV antibiotics and supportive care. Patient refusing systemic steroids. Sepsis. Bacteremia with coag-negative staph 2 of 4. Consult ID Physician Orthostatic hypotension. Patient reported dizziness upon standing. IV fluid hydration. Bipolar disorder. Continue home medications. Hypertension. Continue antihypertensive medications. Chronic atrial fibrillation. Continue anticoagulation and telemetry monitoring. Depression/Anxiety disorder. Continue medications. Seizure disorder. Continue Keppra. Seizure precautions. History Interval history: Fever of 100.5 two days ago positive blood cultures Hospitalist Physical - Physical exam Narrative exam: Gen: Not in acute distress, lying in bed, Obese HEENT: Normocephalic, atraumatic Neck: supple, no JVD Heart: S1 and S2 reg, no murmurs, rubs or gallop Lungs: Clear to auscultation, no rhonchi, no wheeze Abd: soft, non tender, non distended, normal BS, Ext: No edema, no clubbing, no cyanosis Neuro: Awake, alert, oriented X 3, no focal neurological signs - Constitutional Vitals: Temp Pulse Resp BP Pulse Ox 97.5 F L 79 20 118/60 96 02/28/19 04:41 02/28/19 04:41 02/28/19 04:41 02/28/19 04:41 02/28/19 04:41 General appearance: Present: no acute distress Results - Labs CBC & Chem 7: 02/26/19 04:46 02/26/19 04:46 Labs: Laboratory Last Values WBC 10.3 K/mm3 (4.5-11.0) 02/26/19 04:46 RBC 3.74 M/mm3 (3.65-5.03) 02/26/19 04:46 Hgb 12.0 gm/dl (10.1-14.3) 02/26/19 04:46 Hct 36.5 % (30.3-42.9) 02/26/19 04:46 MCV 98 fl (79-97) H 02/26/19 04:46 MCH 32 pg (28-32) 02/26/19 04:46 MCHC 33 % (30-34) 02/26/19 04:46 RDW 15.8 % (13.2-15.2) H 02/26/19 04:46 Plt Count 335 K/mm3 (140-440) 02/26/19 04:46 Lymph % (Auto) 11.0 % (13.4-35.0) L 02/26/19 04:46 [place] % (Auto) 4.8 % (0.0-7.3) 02/26/19 04:46 Eos % (Auto) 1.7 % (0.0-4.3) 02/26/19 04:46 Baso % (Auto) 1.0 % (0.0-1.8) 02/26/19 04:46 Lymph # 1.1 K/mm3 (1.2-5.4) L 02/26/19 04:46 [place] # 0.5 K/mm3 (0.0-0.8) 02/26/19 04:46 Eos # 0.2 K/mm3 (0.0-0.4) 02/26/19 04:46 Baso # 0.1 K/mm3 (0.0-0.1) 02/26/19 04:46 Seg Neutrophils % 81.5 % (40.0-70.0) H 02/26/19 04:46 Seg Neutrophils # 8.4 K/mm3 (1.8-7.7) H 02/26/19 04:46 PT 14.1 Sec. (12.2-14.9) 02/24/19 Unknown INR 1.12 (0.87-1.13) 02/24/19 Unknown APTT 27.1 Sec. (24.2-36.6) 02/24/19 Unknown 331.59 ng/mlDDU (0-234) H 02/24/19 Unknown ABG pH 7.360 pH Units (7.350-7.450) 02/24/19 Unknown ABG pCO2 46.1 mm Hg 02/24/19 Unknown ABG pO2 83.8 mm Hg (80.0-90.0) 02/24/19 Unknown ABG HCO3 25.5 mmol/L (20.0-26.0) 02/24/19 Unknown ABG O2 Saturation 96.4 % (95.0-99.0) 02/24/19 Unknown ABG O2 Content 18.5 (0.0-44) 02/24/19 Unknown ABG Base Excess -0.3 mmol/L (-2.0-3.0) 02/24/19 Unknown ABG Hemoglobin 14.2 gm/dl (12.0-16.0) 02/24/19 Unknown ABG Carboxyhemoglobin 3.3 % (0.0-5.0) 02/24/19 Unknown ABG Methemoglobin 0.5 % (0.0-1.5) 02/24/19 Unknown 92.8 % (95.0-99.0) L 02/24/19 Unknown 21 % 02/24/19 Unknown Sodium 139 mmol/L (137-145) 02/26/19 04:46 Potassium 4.4 mmol/L (3.6-5.0) 02/26/19 04:46 Chloride 105.1 mmol/L (98-107) 02/26/19 04:46 Carbon Dioxide 24 mmol/L (22-30) 02/26/19 04:46 14 mmol/L 02/26/19 04:46 BUN 14 mg/dL (7-17) 02/26/19 04:46 0.7 mg/dL (0.7-1.2) 02/26/19 04:46 Estimated GFR > 60 ml/min 02/26/19 04:46 20 % 02/26/19 04:46 Glucose 112 mg/dL (65-100) H 02/26/19 04:46 Lactic Acid 1.10 mmol/L (0.7-2.0) 02/25/19 13:35 Calcium 7.5 mg/dL (8.4-10.2) L 02/26/19 04:46 0.30 mg/dL (0.1-1.2) 02/24/19 Unknown < 0.2 mg/dL (0-0.2) 02/24/19 Unknown AST 11 units/L (5-40) 02/24/19 Unknown ALT 6 units/L (7-56) L 02/24/19 Unknown 102 units/L (35-129) 02/24/19 Unknown 116.0 umol/L (25-60) H 02/24/19 Unknown 21 units/L (30-135) L 02/24/19 Unknown CK-MB (CK-2) 1.4 ng/mL (0.0-4.0) 02/24/19 Unknown CK-MB (CK-2) Rel Index 6.6 (0-4) H 02/24/19 Unknown < 0.010 ng/mL (0.00-0.029) 02/24/19 Unknown NT-Pro-B Natriuret Pep 635.6 pg/mL (0-900) 02/24/19 Unknown 6.7 g/dL (6.3-8.2) 02/24/19 Unknown 3.4 g/dL (3.9-5) L 02/24/19 Unknown 1.0 % 02/24/19 Unknown Yellow (Yellow) 02/24/19 Unknown Cloudy (Clear) 02/24/19 Unknown 7.0 (5.0-7.0) 02/24/19 Unknown Ur Specific [place] 1.015 (1.003-1.030) 02/24/19 Unknown <15 mg/dl mg/dL (Negative) 02/24/19 Unknown Neg mg/dL (Negative) 02/24/19 Unknown Neg mg/dL (Negative) 02/24/19 Unknown Mod (Negative) 02/24/19 Unknown Neg (Negative) 02/24/19 Unknown Neg (Negative) 02/24/19 Unknown 2.0 mg/dL (<2.0) 02/24/19 Unknown Ur Leukocyte Esterase Tr (Negative) 02/24/19 Unknown 7.0 /HPF (0.0-6.0) H 02/24/19 Unknown 56.0 /HPF (0.0-6.0) 02/24/19 Unknown U Epithel Cells (Auto) 1.0 /HPF (0-13.0) 02/24/19 Unknown 4+ /HPF (Negative) 02/24/19 Unknown Calcium Phosphate Cryst 2+ 02/24/19 Unknown Few /HPF 02/24/19 Unknown Presumptive negative 02/24/19 14:30 Presumptive negative 02/24/19 14:30 Ur Barbiturates Screen Presumptive negative 02/24/19 14:30 Ur Phencyclidine Scrn Presumptive negative 02/24/19 14:30 Ur Amphetamines Screen Presumptive negative 02/24/19 14:30 U Benzodiazepines Scrn Presumptive negative 02/24/19 14:30 Presumptive negative 02/24/19 14:30 U Marijuana (THC) Screen Presumptive negative 02/24/19 14:30 Disclamer 02/24/19 14:30 Active Medications - Current Medications Current Medications: Generic Name Dose Route Start Last Admin Trade Name Freq PRN Reason Stop Dose Admin Acetaminophen 650 mg 02/24/19 12:24 Tylenol PO Q4H PRN Pain MILD(1-3)/Fever >100.5/KRISHNAN Acetaminophen/Hydrocodone Bitart 1 each 02/24/19 13:00 02/27/19 13:13 [place] 10/325 PO 1 each Q6H PRN Administration Pain Apixaban 5 mg 02/24/19 22:00 02/27/19 21:31 Eliquis PO 5 mg BID ALONDRA Administration Protocol Aspirin 81 mg 02/25/19 10:00 02/27/19 09:17 Baby Aspirin PO 81 mg QDAY ALONDRA Administration Atorvastatin Calcium 40 mg 02/24/19 22:00 02/27/19 21:31 Lipitor PO 40 mg QHS ALONDRA Administration Famotidine 20 mg 02/24/19 22:00 02/27/19 21:31 Pepcid PO 20 mg BID ALONDRA Administration Hydrochlorothiazide 12.5 mg 02/25/19 10:00 02/27/19 09:17 Hctz PO 12.5 mg QDAY ALONDRA Administration Sodium Chloride 1,000 mls @ 75 mls/hr 02/25/19 14:00 02/28/19 05:51 Nacl 0.9% 1000 Ml IV 75 mls/hr DIRECT ALONDRA Infusion Doxycycline Hyclate 100 mg/ 250 mls @ 250 mls/hr 02/26/19 00:00 02/27/19 12:21 Sodium Chloride IV 250 mls/hr Q12H ALONDRA Administration Vancomycin HCl 1,750 mg/ 535 mls @ 333.333 mls/hr 02/26/19 22:00 02/28/19 05:40 Sodium Chloride IV 333.333 mls/hr Q24HR@2200 ALONDRA Administration Levetiracetam 750 mg 02/24/19 22:00 02/27/19 21:31 Keppra PO 750 mg QHS ALONDRA Administration Lorazepam 1 mg 02/24/19 14:56 02/24/19 22:25 Ativan IV 1 mg Q8H PRN Administration Anxiety Midodrine 5 mg 02/25/19 10:00 02/27/19 09:17 Proamatine PO 5 mg QAM ALONDRA Administration Midodrine 5 mg 02/24/19 22:00 02/27/19 21:31 Proamatine PO 5 mg QHS ALONDRA Administration Ondansetron HCl 8 mg 02/24/19 12:18 Zofran Odt PO Q8HR PRN Nausea And Vomiting Ondansetron HCl 4 mg 02/24/19 12:24 02/27/19 21:41 Zofran IV 4 mg Q8H PRN Administration Nausea And Vomiting Pantoprazole Sodium 40 mg 02/25/19 10:00 02/27/19 09:18 Protonix PO 40 mg QDAY ALONDRA Administration Potassium Chloride 20 meq 02/25/19 10:00 02/27/19 09:18 K-Dur PO 20 meq QDAY ALONDRA Administration Pravastatin Sodium 80 mg 02/24/19 22:00 02/27/19 21:31 Pravachol PO 80 mg QHS ALONDRA Administration Sodium Chloride 10 ml 02/24/19 22:00 02/27/19 21:31 Sodium Chloride Flush Syringe 10 Ml IV 10 ml BID ALONDRA Administration Sodium Chloride 10 ml 02/24/19 12:24 02/26/19 13:52 Sodium Chloride Flush Syringe 10 Ml IV 10 ml PRN PRN Administration LINE FLUSH Topiramate 100 mg 02/25/19 10:00 02/27/19 09:17 Topamax PO 100 mg QAM ALONDRA Administration Topiramate 200 mg 02/24/19 22:00 02/27/19 21:31 Topamax PO 200 mg QHS ALONDRA Administration Zolpidem Tartrate 10 mg 02/25/19 22:14 Ambien PO QHS PRN Insomnia
[2019-02-28] MEDS: ELIQUIS PO SCH (10:13)
[2019-02-28] MEDS: PROAMATINE PO SCH (10:13)
[2019-02-28] MEDS: K-DUR PO SCH (10:13)
[2019-02-28] MEDS: BABY ASPIRIN PO SCH (10:13)
[2019-02-28] MEDS: PROTONIX PO SCH (10:13)
[2019-02-28] MEDS: TOPAMAX PO SCH (10:13)
[2019-02-28] MEDS: HCTZ PO SCH (10:13)
[2019-02-28] MEDS: PEPCID PO SCH (10:14)
[2019-02-28] MEDS: SODIUM CHLORIDE FLUSH SYRINGE 10 ML IV SCH (10:14)
--- NOTE | 2019-02-28 10:33 | Consultation ---
History of Present Illness - Reason for Consult Consult date: 02/28/19 - History of Present Illness 69 yo F PMHx lung cancer, CVA, bipolar, COPD, DVT, HLD, HTN, CAD admitted to the hospital due to SOB. She ntoes this began approximately a week prior to admission but then acutely worsened 3 days before presenting.She complained of associated CHOI, productive cough of fany sputum and using more of her rescue medications. She was found to be hypoxic by EMS and brought to the hospital where she was diagnosed with acute COPD exacerbation. She was then started on the pneumonia protocol with levofloxacin. She otherwise denied fevers, sweats, chills. Tmax during admission to 100.9, and blood cultures were taken at that time on 02/24. She has otherwise been afebrile Those cultures became positive for 1/2 bottles of 2/2 sets of CoNS. She was admitted with a leukocytosis which has since resolved. Currently receiving vancomycin. She has a port for her lung cancer that is not actively being used for chemo, and she is unsure if there are any future plans to use it for that. Imaging personally reviewed: 02/24 CXR: RLL parenchymal opacity consistent with focal mass. Review of Systems: Bold if positive, otherwise negative General: fevers, chills, rigors HEENT: visual disturbance, diplopia, eye pain Respiratory: cough, sputum, hemoptysis, shortness of breath Cardiovascular: chest pain, syncope Gastrointestinal: nausea, vomiting, diarrhea, abdominal pain Genitourinary: dysuria, hematuria, flank pain Musculoskeletal: neck pain, back pain, joint pain, edema Neurologic: headaches, seizures Hematologic: easy bruising or bleeding Endocrine: night sweats, acute weight loss Skin: rash, jaundice, redness Psychiatric: suicidal, homicidal ideation Past History Past Medical History: atrial fib, cancer, COPD, DVT, GERD, hypertension, hyperlipidemia, seizures, stroke, other (Bipolar, ) Past Surgical History: appendectomy, cholecystectomy, hysterectomy, Other (ICD placement) Social history: Family history: hypertension Medications and Allergies Allergies Allergy/AdvReac Type Severity Reaction Status Date / Time Penicillins Allergy Intermediate Itching Verified 07/15/18 10:32 codeine AdvReac Rash Verified 07/15/18 10:32 Sulfa (Sulfonamide AdvReac Nausea Verified 07/15/18 10:32 Antibiotics) Home Medications Medication Instructions Recorded Confirmed Last Taken Type Topiramate [Topamax] 200 mg PO QHS 04/08/17 02/24/19 04/07/17 History Aspirin [Aspirin BABY CHEW TAB] 81 mg PO QDAY #30 tab.chew 04/15/17 02/24/19 Unknown Rx Topiramate [Topamax] 100 mg PO QAM #30 tablet 04/15/17 02/24/19 Unknown Rx Apixaban [Eliquis] 5 mg PO BID 02/24/19 02/24/19 Unknown History Azithromycin [Zithromax] 250 mg PO QDAY 02/24/19 02/24/19 Unknown History Budesonide/Formoterol Fumarate 10.2 gm IH PRN 02/24/19 02/24/19 Unknown History [Symbicort 160-4.5 Mcg Inhaler] hydroCHLOROthiazide [Hctz] 12.5 mg PO QDAY 02/24/19 02/24/19 Unknown History Active Meds: Active Medications Acetaminophen (Tylenol) 650 mg PO Q4H PRN PRN Reason: Pain MILD(1-3)/Fever >100.5/[place] Acetaminophen/Hydrocodone Bitart ([place] 10/325) 1 each PO Q6H PRN PRN Reason: Pain Last Admin: 02/27/19 13:13 Dose: 1 each Documented by: Apixaban (Eliquis) 5 mg PO BID [facility]; Protocol Last Admin: 02/28/19 10:13 Dose: 5 mg Documented by: Aspirin (Baby Aspirin) 81 mg PO QDAY [facility] Last Admin: 02/28/19 10:13 Dose: 81 mg Documented by: Atorvastatin Calcium (Lipitor) 40 mg PO QHS [facility] Last Admin: 02/27/19 21:31 Dose: 40 mg Documented by: Famotidine (Pepcid) 20 mg PO BID [facility] Last Admin: 02/28/19 10:14 Dose: 20 mg Documented by: Hydrochlorothiazide (Hctz) 12.5 mg PO QDAY [facility] Last Admin: 02/28/19 10:13 Dose: 12.5 mg Documented by: Sodium Chloride (Nacl 0.9% 1000 Ml) 1,000 mls @ 75 mls/hr IV DIRECT [facility] Last Infusion: 02/28/19 05:51 Dose: 75 mls/hr Documented by: Doxycycline Hyclate 100 mg/ (Sodium Chloride) 250 mls @ 250 mls/hr IV Q12H [facility] Last Admin: 02/27/19 12:21 Dose: 250 mls/hr Documented by: Vancomycin HCl 1,750 mg/ (Sodium Chloride) 535 mls @ 333.333 mls/hr IV Q24HR@2200 [facility] Last Admin: 02/28/19 05:40 Dose: 333.333 mls/hr Documented by: Levetiracetam (Keppra) 750 mg PO QHS [facility] Last Admin: 02/27/19 21:31 Dose: 750 mg Documented by: Lorazepam (Ativan) 1 mg IV Q8H PRN PRN Reason: Anxiety Last Admin: 02/24/19 22:25 Dose: 1 mg Documented by: [facility]atine) [facility] Last Admin: 02/28/19 10:13 Dose: 5 mg Documented by: Midodrine (Proamatine) 5 mg PO QHS [facility] Last Admin: 02/27/19 21:31 Dose: 5 mg Documented by: Ondansetron HCl (Zofran Odt) 8 mg PO Q8HR PRN PRN Reason: Nausea And Vomiting Ondansetron HCl (Zofran) 4 mg IV Q8H PRN PRN Reason: Nausea And Vomiting Last Admin: 02/27/19 21:41 Dose: 4 mg Documented by: Pantoprazole Sodium (Protonix) 40 mg PO QDAY [facility] Last Admin: 02/28/19 10:13 Dose: 40 mg Documented by: Potassium Chloride (K-Dur) 20 meq PO QDAY [facility] Last Admin: 02/28/19 10:13 Dose: 20 meq Documented by: Pravastatin Sodium (Pravachol) 80 mg PO QHS [facility] Last Admin: 02/27/19 21:31 Dose: 80 mg Documented by: Sodium Chloride (Sodium Chloride Flush Syringe 10 Ml) 10 ml IV BID [facility] Last Admin: 02/28/19 10:14 Dose: 10 ml Documented by: Sodium Chloride (Sodium Chloride Flush Syringe 10 Ml) 10 ml IV PRN PRN PRN Reason: LINE FLUSH Last Admin: 02/26/19 13:52 Dose: 10 ml Documented by: Topiramate (Topamax) 100 mg [facility] [place] Last Admin: 02/28/19 10:13 Dose: 100 mg Documented by: Topiramate (Topamax) 200 mg PO QHS [facility] Last Admin: 02/27/19 21:31 Dose: 200 mg Documented by: Zolpidem Tartrate (Ambien) 10 mg PO QHS PRN PRN Reason: Insomnia Physical Examination - Physical Exam Narrative exam: Constitutional: Alert, cooperative. No acute distress Head, Ears, Nose: Normocephalic, atraumatic. External ears, nose normal Eyes: Conjunctivae/corneas clear. No icterus. No ptosis. Neck: Supple, no meningeal signs Oral: dentition fair, no thrush Cardiovascular: S1, S2 normal. R sided port in place. Respiratory: Good air entry, clear to auscultation bilaterally GI: Soft, non-tender; bowel sounds normal. No peritoneal signs. Musculoskeletal: No pedal edema, no cyanosis. Skin: No rash or abscess Hem/Lymphatic: No palpable cervical or supraclavicular nodes. No lymphangitis Psych: Mood ok. Affect normal Neurological: Awake, alert, oriented. No gross abnormality - Constitutional Vitals: Vital Signs Temp Pulse Resp BP Pulse Ox 97.5 F L 79 20 118/60 96 02/28/19 04:41 02/28/19 04:41 02/28/19 04:41 02/28/19 04:41 02/28/19 04:41 Temperature -Last 24 Hours Temperature 97.5 F Temperature 97.7 F Temperature 98.0 F Temperature 98.0 F Results - Labs CBC & Chem 7: 02/26/19 04:46 02/26/19 04:46 Assessment and Plan Cultures: 02/24 BCx: CoNS A/P: 69 yo F PMHx lung cancer, CVA, bipolar, COPD, DVT, HLD, HTN, CAD admitted with port infection 1. CoNS Bacteremia - likely 2/2 her port. Due to the nature of this bacteria, we have to option of port removal vs. salvage. Given that there are no plans for upcoming usage of the port, it is my recommendation that it be removed. After removal she can be treated with 5 days of vancomycin to complete therapy. 2. Lung cancer 3. COPD 4. HLD 5. HTN 6. CAD Recs: - Continue vancomycin dosed per pharmacy. Appreciate their assistance. Goal trough 10-15. - Ordered repeat BCx - ordered TTE Thank you for the consult, we will continue to follow. Esequiel Sharp MD [facility] M: [phone] O: [phone] F: [phone]
[2019-02-28] MEDS: DOXYCYCLINE HYCLATE 100 MG in NACL 0.9% 250ML 250 ML IV SCH ×2 (12:29)
[2019-02-28 18:49] VITALS: BP 113/53
[2019-02-28] MEDS ORDERED: FLUSH HEPARIN IV ONE (19:00)
[2019-02-28] MEDS ORDERED: TRIPLE ANTIBIOTIC TP ONE (19:00)
--- NOTE | 2019-02-28 21:43 | Discharge Summary ---
Providers - Providers Date of Admission: 02/24/19 12:25 Date of discharge: 02/28/19 Attending physician: ROCAEL FRANCO 02/28/19 07:31 Consult to Physician [CONS] Routine Comment: Consulting Provider: ESDRAS GOINS Physician Instructions: Reason For Exam: Fever,bacteremia Primary care physician: RIK FARLEY MD Hospitalization Condition: Stable Disposition: [id number] LEFT AGAINST MED ADVICE Exam - Constitutional Vitals: Temp Pulse Resp BP Pulse Ox 97.8 F 84 16 113/53 95 02/28/19 17:00 02/28/19 17:00 02/28/19 17:00 02/28/19 17:00 02/28/19 17:00 Plan Follow up with: PRIMARY MD MIGUELITO [Primary Care Provider] - 3-5 Days
--- NOTE | 2019-02-28 21:44 | Event Note ---
Date: 02/28/19 Patient leaving AMA
[2019-03-01] MEDS ORDERED: VANCOMYCIN 1,750 MG in NACL 0.9% 500 ML 500 ML IV SCH (06:00)
== END 2019-02-28 18:50 | disposition left against medical advice (07) | DRG 314 ==
LOC: ED 06:46 → 4A 12:25 → 3A 14:23
PROVIDERS: ADMIT Internal Medicine; ATTEND Internal Medicine
PROC: 4A033R1 Measurement of Arterial Saturation, Peripheral, Percutaneous Approach (ICD-10-PCS; principal; 2019-02-28)
DX: T82.7XXA Infection and inflammatory reaction due to other cardiac and vascular devices, implants and grafts, initial encounter (principal); A41.9 Sepsis, unspecified organism; J96.01 Acute respiratory failure with hypoxia; J18.1 Lobar pneumonia, unspecified organism; J44.1 Chronic obstructive pulmonary disease with (acute) exacerbation; C34.91 Malignant neoplasm of unspecified part of right bronchus or lung; E72.20 Disorder of urea cycle metabolism, unspecified; F31.9 Bipolar disorder, unspecified; F41.9 Anxiety disorder, unspecified; I50.9 Heart failure, unspecified; I11.0 Hypertensive heart disease with heart failure; G40.909 Epilepsy, unspecified, not intractable, without status epilepticus; Z53.21 Procedure and treatment not carried out due to patient leaving prior to being seen by health care provider; K21.9 Gastro-esophageal reflux disease without esophagitis; I48.91 Unspecified atrial fibrillation; I48.2 Chronic atrial fibrillation; Z79.01 Long term (current) use of anticoagulants; Z86.73 Personal history of transient ischemic attack (TIA), and cerebral infarction without residual deficits; I25.2 Old myocardial infarction; Z82.49 Family history of ischemic heart disease and other diseases of the circulatory system; Z90.710 Acquired absence of both cervix and uterus; Z95.810 Presence of automatic (implantable) cardiac defibrillator; Z86.718 Personal history of other venous thrombosis and embolism; Z88.2 Allergy status to sulfonamides; Z88.5 Allergy status to narcotic agent; Z88.0 Allergy status to penicillin; Z79.82 Long term (current) use of aspirin; Z79.899 Other long term (current) drug therapy
CPT/HCPCS: 36415; 71045; 80048; 80076; 80307; 81001; 82140; 82550; 82553; 82803; 83880; 84484; 85025; 85379; 85610; 85730; 87040; 93005; 93010; 94644; 96374; G0378; A6250; A9270-GY; J1642; J1956; J2060; J2405; J2930; J3370; J7030; J7040; J7050; Q0162